=== PATIENT | female | born 1990 | race African-American/Black ===

== ENCOUNTER 2016-11-19 13:25 | Emergency (ER) | payer OTHER ==
[2016-11-19] MEDS ORDERED: SODIUM CHLORIDE 0.9% 1,000 ML IV STA (15:24)
[2016-11-19] MEDS ORDERED: ONDANSETRON 4 MG/2 ML VIAL IVP STA (15:24)
[2016-11-19] MEDS ORDERED: ACETAMINOPHEN IV (For NPO) 1,000 MG in SALINE 1 100ML.BAG IVPB STA (15:27)
--- NOTE | 2016-11-19 15:42 | ED ---
Nausea/Vomiting/Diarrhea HPI - General Chief complaint: Nausea/Vomiting/Diarrhea Stated complaint: Vomiting Time Seen by Provider: 11/19/16 15:17 Source: patient, RN notes reviewed Mode of arrival: ambulatory Limitations: no limitations - History of Present Illness Initial comments: This is a 26-year-old female who has a history of irritable bowel syndrome and hiatal hernia who states she had the onset yesterday of left lower quadrant abdominal pain some obstipation and black colored stool. She has no history of GI bleeding. She states the pain is intermittently a 10/10 severity sharp and burning in nature she denies any fevers chills or sweats she does have some nausea was having dry heaves. She does admit to drinking occasionally she is a approximately half a pack a day smoker. We did discuss smoking cessation. She does also complain feeling lightheaded upon try to ambulate. Additionally the patient does states she's been on her menstrual period for the past 2 days. She denies any dysuria or hematuria. MD complaint: nausea, vomiting, diarrhea, abdominal pain - Related Data Home Medications Medication Instructions Recorded Confirmed Omeprazole [PriLOSEC] 20 mg PO DAILY 01/05/16 11/19/16 Baclofen [Lioresal] 10 mg PO HS 09/16/16 11/19/16 DULoxetine HCL [Cymbalta] 30 mg PO DAILY 09/16/16 11/19/16 Gabapentin 600 mg PO QID 09/16/16 11/19/16 Dicyclomine [Bentyl] 20 mg PO DAILY PRN 11/19/16 11/19/16 Previous Rx's Medication Instructions Recorded Hydrocodone/Acetaminophen [[place] 1 each PO Q6HR PRN #20 tab 11/19/16 5-325] Allergies Allergy/AdvReac Type Severity Reaction Status Date / Time No Known Allergies Allergy Verified 11/19/16 15:31 Review of Systems ROS Statement: Those systems with pertinent positive or pertinent negative responses have been documented in the HPI. ROS Other: All systems not noted in ROS Statement are negative. Past Medical History Past Medical History: Fibromyalgia Additional Past Medical History / Comment(s): diverticulosis, abdominal pain, IBS History of Any Multi-Drug Resistant Organisms: None Reported Past Surgical History: No Surgical Hx Reported Additional Past Surgical History / Comment(s): COLONOSCOPY AND EGD Past Anesthesia/Blood Transfusion Reactions: No Reported Reaction Past Psychological History: Anxiety, Depression Smoking Status: Current every day smoker Past Alcohol Use History: Occasional Additional Past Alcohol Use History / Comment(s): smokes < 1/2 PPD for past 9 yrs Past Drug Use History: None Reported - Past Family History Mother Family Medical History: No Reported History General Exam - General Exam Comments Initial Comments: This is a well-developed well-nourished awake alert oriented 3 female Limitations: no limitations General appearance: alert, in no apparent distress Head exam: Present: atraumatic, normocephalic, normal inspection Eye exam: Present: normal appearance, PERRL, EOMI. Absent: scleral icterus, conjunctival injection, periorbital swelling ENT exam: Present: normal exam, mucous membranes moist Neck exam: Present: normal inspection. Absent: tenderness, meningismus, lymphadenopathy Respiratory exam: Present: normal lung sounds bilaterally. Absent: respiratory distress, wheezes, rales, rhonchi, stridor Cardiovascular Exam: Present: regular rate, normal rhythm, normal heart sounds. Absent: systolic murmur, diastolic murmur, rubs, gallop, clicks GI/Abdominal exam: Present: soft, tenderness (Left lower quadrant tenderness palpation no definite guarding or rebound), normal bowel sounds. Absent: distended, guarding, rebound, rigid Rectal exam: Present: normal inspection, normal rectal tone, other (No gross blood masses or hemorrhoids. The patient does have a tampon in at this time.) Extremities exam: Present: normal inspection, full ROM, normal capillary refill. Absent: tenderness, pedal edema, joint swelling, calf tenderness Back exam: Present: normal inspection Neurological exam: Present: alert, oriented X3, CN II-XII intact Psychiatric exam: Present: normal affect, normal mood Skin exam: Present: warm, dry, intact, normal color. Absent: rash Course Vital Signs 11/19/16 13:38 Temperature 98.1 F Pulse Rate 69 Respiratory 18 Rate Blood Pressure 128/60 O2 Sat by Pulse 97 Oximetry - Reevaluation(s) Reevaluation #1: 11/19/16 17:30 Patient states her nausea is better but she still has significant left lower quadrant pain. Pain medication will be administered in addition the CAT scan abdomen pelvis will be done. Medical Decision Making - Lab Data Result diagrams: 11/19/16 16:45 11/19/16 16:45 Lab Results 11/19/16 11/19/16 11/19/16 Range/Units 16:00 16:00 16:45 WBC (3.8-10.6) k/uL RBC (3.80-5.40) m/uL Hgb (11.4-16.0) gm/dL Hct (34.0-46.0) % MCV (80.0-100.0) fL MCH (25.0-35.0) pg MCHC (31.0-37.0) g/dL RDW (11.5-15.5) % Plt Count (150-450) k/uL Neutrophils % % Lymphocytes % % Monocytes % % Eosinophils % % Basophils % % Neutrophils # (1.3-7.7) k/uL Lymphocytes # (1.0-4.8) k/uL Monocytes # (0-1.0) k/uL Eosinophils # (0-0.7) k/uL Basophils # (0-0.2) k/uL Sodium 142 (137-145) mmol/L Potassium 4.6 (3.5-5.1) mmol/L Chloride 105 (98-107) mmol/L Carbon Dioxide 24 (22-30) mmol/L Anion Gap 13 mmol/L BUN 8 (7-17) mg/dL Creatinine 0.78 (0.52-1.04) mg/dL Est GFR (MDRD) Af Amer >60 (>60 ml/min/1.73 sqM) Est GFR (MDRD) Non-Af >60 (>60 ml/min/1.73 sqM) Glucose 86 (74-99) mg/dL Calcium 9.9 (8.4-10.2) mg/dL Total Bilirubin 0.5 (0.2-1.3) mg/dL AST 29 (14-36) U/L ALT 40 (9-52) U/L Alkaline Phosphatase 58 (38-126) U/L Total Protein 8.1 (6.3-8.2) g/dL Albumin 4.4 (3.5-5.0) g/dL Amylase 91 (30-110) U/L Lipase 243 (23-300) U/L Urine Color Yellow Urine Appearance Clear (Clear) Urine pH 6.0 (5.0-8.0) Ur Specific [place] 1.021 (1.001-1.035) Urine Protein Negative (Negative) Urine Glucose (UA) Negative (Negative) Urine Ketones Negative (Negative) Urine Blood Negative (Negative) Urine Nitrate Negative (Negative) Urine Bilirubin Negative (Negative) Urine Urobilinogen <2.0 (<2.0) mg/dL Ur Leukocyte Esterase Negative (Negative) Stool Occult Blood Negative (Negative) 11/19/16 Range/Units 16:45 WBC 7.3 (3.8-10.6) k/uL RBC 4.62 (3.80-5.40) m/uL Hgb 12.5 (11.4-16.0) gm/dL Hct 39.6 (34.0-46.0) % MCV 85.7 (80.0-100.0) fL MCH 27.1 (25.0-35.0) pg MCHC 31.6 (31.0-37.0) g/dL RDW 12.7 (11.5-15.5) % Plt Count 325 (150-450) k/uL Neutrophils % 35 % Lymphocytes % 54 % Monocytes % 3 % Eosinophils % 5 % Basophils % 1 % Neutrophils # 2.6 (1.3-7.7) k/uL Lymphocytes # 4.0 (1.0-4.8) k/uL Monocytes # 0.3 (0-1.0) k/uL Eosinophils # 0.3 (0-0.7) k/uL Basophils # 0.1 (0-0.2) k/uL Sodium (137-145) mmol/L Potassium (3.5-5.1) mmol/L Chloride (98-107) mmol/L Carbon Dioxide (22-30) mmol/L Anion Gap mmol/L BUN (7-17) mg/dL Creatinine (0.52-1.04) mg/dL Est GFR (MDRD) Af Amer (>60 ml/min/1.73 sqM) Est GFR (MDRD) Non-Af (>60 ml/min/1.73 sqM) Glucose (74-99) mg/dL Calcium (8.4-10.2) mg/dL Total Bilirubin (0.2-1.3) mg/dL AST (14-36) U/L ALT (9-52) U/L Alkaline Phosphatase (38-126) U/L Total Protein (6.3-8.2) g/dL Albumin (3.5-5.0) g/dL Amylase (30-110) U/L Lipase (23-300) U/L Urine Color Urine Appearance (Clear) Urine pH (5.0-8.0) Ur Specific [place] (1.001-1.035) Urine Protein (Negative) Urine Glucose (UA) (Negative) Urine Ketones (Negative) Urine Blood (Negative) Urine Nitrate (Negative) Urine Bilirubin (Negative) Urine Urobilinogen (<2.0) mg/dL Ur Leukocyte Esterase (Negative) Stool Occult Blood (Negative) - Radiology Data Radiology results: report reviewed (I did review the imaging and reports there is some evidence of some colitis no other major findings), image reviewed Disposition Clinical Impression: Gastroenteritis, Colitis Disposition: HOME SELF-CARE Condition: Good Instructions: Acute Nausea and Vomiting (ED), Colitis (ED) Prescriptions: Hydrocodone/Acetaminophen [[place] 5-325] 1 each PO Q6HR PRN #20 tab PRN Reason: Pain
[2016-11-19 16:29] LABS: Appearance,Urine Clear (Clear); Bilirubin,Urine Negative (Negative); Glucose,Urine (UA) Negative (Negative); Ketones,Urine Negative (Negative); Leukocyte Esterase,Urine Negative (Negative); Nitrite,Urine Negative (Negative); Protein,Urine Negative (Negative); Specific Gravity,Urine 1.021 (1.001-1.035); UA Billing (MACRO vs. MICRO) CHEM; Urobilinogen,Urine <2.0 mg/dL (<2.0)
[2016-11-19 17:08] LABS: Basophils # (A) 0.1 k/uL (0-0.2); Basophils % (A) 1 %; CH 27.8; CHCM 32.7; Eosinophils # (A) 0.3 k/uL (0-0.7); Eosinophils % (A) 5 %; HCT 39.6 % (34.0-46.0); HDW 2.35; HGB 12.5 gm/dL (11.4-16.0); Luc # (Auto) 0.13; Luc % (Auto) 2; Lymphocytes % (A) 54 %; MCH 27.1 pg (25.0-35.0); MCHC 31.6 g/dL (31.0-37.0); MCV 85.7 fL (80.0-100.0); Mean Platelet Volume 7.3; Monocytes # (A) 0.3 k/uL (0-1.0); Monocytes % (A) 3 %; Neutrophils # (A) 2.6 k/uL (1.3-7.7); Neutrophils % (A) 35 %; RBC 4.62 m/uL (3.80-5.40); RDW 12.7 % (11.5-15.5); WBC 7.3 k/uL (3.8-10.6); WBC (Perox) 7.64
--- NOTE | 2016-11-19 17:24 | XR ---
Abdomen HISTORY: Nausea vomiting and diarrhea Frontal view of the abdomen correlated to prior exam 05 January 2016 Lung bases are clear. There is a spinal curvature. No pneumoperitoneum. Some air-fluid levels present without bowel distention. IMPRESSION: Findings likely represent enteritis, follow-up as indicated
[2016-11-19 17:25] LABS: ALT 40 U/L (9-52); AST 29 U/L (14-36); Alkaline Phosphatase 58 U/L (38-126); Amylase 91 U/L (30-110); Anion Gap 13 mmol/L; Blood Urea Nitrogen 8 mg/dL (7-17); Calcium 9.9 mg/dL (8.4-10.2); Carbon Dioxide 24 mmol/L (22-30); Chloride 105 mmol/L (98-107); Glucose 86 mg/dL (74-99); Non-African American GFR(MDRD) >60 (>60 ml/min/1.73 sqM); Potassium 4.6 mmol/L (3.5-5.1); Sodium 142 mmol/L (137-145); Total Bilirubin 0.5 mg/dL (0.2-1.3); Total Protein 8.1 g/dL (6.3-8.2)
--- NOTE | 2016-11-19 17:25 | XR ---
EXAMINATION TYPE: XR chest 2V DATE OF EXAM: 11/19/2016 5:12 PM COMPARISON: NONE HISTORY: Pain TECHNIQUE: Frontal and lateral views of the chest are obtained. FINDINGS: There is no focal air space opacity, pleural effusion, or pneumothorax seen. The cardiac silhouette size is within normal limits. The osseous structures are intact. IMPRESSION: No acute cardiopulmonary process.
[2016-11-19] MEDS ORDERED: KETOROLAC 30 MG/ML 1 ML VIAL IVP STA (17:29)
--- NOTE | 2016-11-19 18:20 | CT ---
EXAMINATION TYPE: CT abdomen pelvis wo con DATE OF EXAM: 11/19/2016 5:52 PM COMPARISON: Prior CT scan 05 January 2016 HISTORY: Bilateral flank pain with nausea. CT DLP: 490.90 mGycm Automated exposure control for dose reduction was used. TECHNIQUE: Helical acquisition of images from the lung bases through the pelvis. FINDINGS: Lack of intravenous contrast could compromise sensitivity. LUNG BASES: No significant abnormality is appreciated. AORTA: No significant abnormality is appreciated. LIVER/GB: No significant abnormality is appreciated. PANCREAS: No significant abnormality is seen. SPLEEN: No significant abnormality is seen. ADRENALS: No significant abnormality is seen. KIDNEYS: No significant abnormality is seen. REPRODUCTIVE ORGANS: Tampon is in place URINARY BLADDER: No significant abnormality is seen. BOWEL: There are fluid-filled loops of bowel, colon shows questionable wall thickening, there is no evident appendicitis FREE AIR: No Free Air is visible. ASCITES: None visible. PELVIC ADENOPATHY: None visualized. RETROPERITONEAL ADENOPATHY: No Retroperitoneal Adenopathy visible. OSSEOUS STRUCTURES: No significant abnormality is seen. IMPRESSION: NONCONTRAST EXAM MAY LIMIT SENSITIVITY. CORRELATE FOR POSSIBLE ENTERITIS, COLITIS. ADDITIONAL FINDING S ABOVE.
[2016-11-19 18:56] VITALS: BP 130/61; PULSE 68; RESP 16; TEMP 97.9
== END 2016-11-19 18:56 | disposition home or self-care (01) ==
LOC: EC 13:25
DX: K52.9 Noninfective gastroenteritis and colitis, unspecified (principal); K58.9 Irritable bowel syndrome, unspecified; F17.200 Nicotine dependence, unspecified, uncomplicated; F41.9 Anxiety disorder, unspecified; F32.9 Major depressive disorder, single episode, unspecified
CPT/HCPCS: 99284; 96375; 96365; 96361; 36415; 80053; 82150; 83690; 85025; 82272; 81003; 71020; 74000; 74176; J2405; J1885; J0131

== ENCOUNTER 2016-12-07 13:06 | Emergency (ER) | payer OTHER ==
[2016-12-07] MEDS ORDERED: DICYCLOMINE 10 MG/ML 2 ML AMP IM STA (13:45)
[2016-12-07] MEDS ORDERED: diphenhydrAMINE 50 MG/ML 1 ML VIAL IVP STA (13:45)
[2016-12-07] MEDS ORDERED: METOCLOPRAMIDE 5 MG/ML 2 ML VIAL IVP STA (13:45)
[2016-12-07] MEDS ORDERED: FAMOTIDINE 20 MG/2 ML VIAL IV STA (13:45)
[2016-12-07] MEDS ORDERED: SODIUM CHLORIDE 0.9% 1,000 ML IV STA (13:45)
--- NOTE | 2016-12-07 13:48 | ED ---
Nausea/Vomiting/Diarrhea HPI - General Chief complaint: Nausea/Vomiting/Diarrhea Stated complaint: vomiting Time Seen by Provider: 12/07/16 13:28 Source: patient Mode of arrival: ambulatory Limitations: no limitations - History of Present Illness Initial comments: Patient is a 26-year-old female with history of IBS presenting with abdominal cramping, nausea, vomiting, diarrhea. Patient states she went out last night and with friends and ate some cake which is a trigger for her. Patient woke up bloated and having episodes of loose stool. She states was on the toilet for 2 hours having intermittent episodes of loose stool. Patient cannot quantify the number of episodes of diarrhea. Patient states she has 2 episodes of vomiting green. Patient denies any recent antibiotics, travel, sick contacts. She does admit to the suspicious food for which she is not supposed to eat dairy. Denies fever, chills, chest pain, shortness breath. - Related Data Home Medications Medication Instructions Recorded Confirmed Omeprazole [PriLOSEC] 20 mg PO DAILY 01/05/16 11/19/16 Baclofen [Lioresal] 10 mg PO HS 09/16/16 11/19/16 DULoxetine HCL [Cymbalta] 30 mg PO DAILY 09/16/16 11/19/16 Gabapentin 600 mg PO QID 09/16/16 11/19/16 Dicyclomine [Bentyl] 20 mg PO DAILY PRN 11/19/16 11/19/16 Previous Rx's Medication Instructions Recorded Hydrocodone/Acetaminophen [[place] 1 each PO Q6HR PRN #20 tab 11/19/16 5-325] Dicyclomine [Bentyl] 20 mg PO QID #30 tablet 12/07/16 Allergies Allergy/AdvReac Type Severity Reaction Status Date / Time No Known Allergies Allergy Verified 12/07/16 13:23 Review of Systems ROS Statement: Those systems with pertinent positive or pertinent negative responses have been documented in the HPI. Constitutional: No fever and no chills. HENT: No congestion, no rhinorrhea and no sore throat. Eyes: No discharge and no redness. Respiratory: No cough and no shortness of breath. Cardiovascular: No chest pain and no palpitations. Gastrointestinal: Positive for abdominal cramping, nausea, vomiting, diarrhea Genitourinary: No dysuria and no hematuria. Musculoskeletal: No back pain and no arthralgias. Skin: No pallor and no rash. Neurological: No dizziness and No headaches. ROS Other: All systems not noted in ROS Statement are negative. Past Medical History Past Medical History: Fibromyalgia Additional Past Medical History / Comment(s): diverticulosis, abdominal pain, IBS History of Any Multi-Drug Resistant Organisms: None Reported Past Surgical History: No Surgical Hx Reported Additional Past Surgical History / Comment(s): COLONOSCOPY AND EGD Past Anesthesia/Blood Transfusion Reactions: No Reported Reaction Past Psychological History: Anxiety, Depression Smoking Status: Current every day smoker Past Alcohol Use History: Occasional Additional Past Alcohol Use History / Comment(s): smokes < 1/2 PPD for past 9 yrs Past Drug Use History: None Reported - Past Family History Mother Family Medical History: No Reported History General Exam - General Exam Comments Initial Comments: Constitutional: Patient appears well-developed and well-nourished. Mild distress. Tearful. Head: Normocephalic and atraumatic. Eyes: Conjunctivae and EOM are normal. Right eye exhibits no discharge. Left eye exhibits no discharge. No scleral icterus. Neck: Normal range of motion. Neck supple. Cardiovascular: Normal rate and regular rhythm. No murmur heard. Pulmonary/Chest: Effort normal and breath sounds normal. No respiratory distress. No wheezes. Abdominal: Soft. No distension. There is no tenderness. There is no rebound and no guarding. Musculoskeletal: Normal range of motion. No edema or tenderness. Neurological: Patient alert and oriented to person, place, and time. Skin: Skin is warm and dry. Not diaphoretic. Nursing notes and vitals reviewed. Limitations: no limitations Course Vital Signs 12/07/16 12/07/16 13:19 15:15 Temperature 99.5 F 100.7 F H Pulse Rate 102 H 91 Respiratory 20 18 Rate Blood Pressure 123/55 124/61 O2 Sat by Pulse 98 100 Oximetry - Reevaluation(s) Reevaluation #1: 12/07/16 16:50 Patient feeling better and updated on lab results as well as x-ray. X-rays unremarkable. Patient with a temperature upon discharge vitals. She is without source of infection at this time abdomen is soft nontender. No right lower quadrant tenderness. Medical Decision Making - Medical Decision Making Patient is a 26-year-old female presenting with abdominal cramping, nausea, vomiting, diarrhea. Patient has IBS and ate dairy last night. Patient woke up having symptoms. She does not have any Bentyl which normally works for her symptoms. Patient was given Bentyl, Pepcid, Reglan, IV fluids, Benadryl with improvement of symptoms. Laboratory studies CBC, CMP, lipase, magnesium unremarkable. UA negative. negative. Abdominal x-ray without free air or air-fluid levels. Prior to discharge, patient was resting comfortably in bed. Course of stay improved. Fever developed while here. Patient is able to be discharged after Motrin. Denies pain. Discussed physical exam and diagnostic tests with patient. Questions answered and patient is agreeable to discharge with close follow up with Primary Care Physician. Instructed to return to Emergency Department if symptoms worsen. - Lab Data Result diagrams: 12/07/16 13:45 12/07/16 13:45 Lab Results 12/07/16 12/07/16 12/07/16 Range/Units 13:45 13:45 13:45 WBC 9.8 (3.8-10.6) k/uL RBC 4.37 (3.80-5.40) m/uL Hgb 11.9 (11.4-16.0) gm/dL Hct 37.1 (34.0-46.0) % MCV 84.8 (80.0-100.0) fL MCH 27.2 (25.0-35.0) pg MCHC 32.0 (31.0-37.0) g/dL RDW 13.1 (11.5-15.5) % Plt Count 265 (150-450) k/uL Neutrophils % 83 % Lymphocytes % 9 % Monocytes % 3 % Eosinophils % 3 % Basophils % 0 % Neutrophils # 8.1 H (1.3-7.7) k/uL Lymphocytes # 0.9 L (1.0-4.8) k/uL Monocytes # 0.3 (0-1.0) k/uL Eosinophils # 0.3 (0-0.7) k/uL Basophils # 0.0 (0-0.2) k/uL Sodium 140 (137-145) mmol/L Potassium 4.2 (3.5-5.1) mmol/L Chloride 107 (98-107) mmol/L Carbon Dioxide 22 (22-30) mmol/L Anion Gap 11 mmol/L BUN 10 (7-17) mg/dL Creatinine 0.77 (0.52-1.04) mg/dL Est GFR (MDRD) Af Amer >60 (>60 ml/min/1.73 sqM) Est GFR (MDRD) Non-Af >60 (>60 ml/min/1.73 sqM) Glucose 97 (74-99) mg/dL Calcium 9.3 (8.4-10.2) mg/dL Magnesium 1.6 (1.6-2.3) mg/dL Total Bilirubin 0.7 (0.2-1.3) mg/dL AST 19 (14-36) U/L ALT 26 (9-52) U/L Alkaline Phosphatase 52 (38-126) U/L Total Protein 7.5 (6.3-8.2) g/dL Albumin 4.1 (3.5-5.0) g/dL Lipase 144 (23-300) U/L Urine Color Urine Appearance (Clear) Urine pH (5.0-8.0) Ur Specific [place] (1.001-1.035) Urine Protein (Negative) Urine Glucose (UA) (Negative) Urine Ketones (Negative) Urine Blood (Negative) Urine Nitrate (Negative) Urine Bilirubin (Negative) Urine Urobilinogen (<2.0) mg/dL Ur Leukocyte Esterase (Negative) Urine HCG, Qual (Not Detectd) 12/07/16 12/07/16 Range/Units 15:08 15:08 WBC (3.8-10.6) k/uL RBC (3.80-5.40) m/uL Hgb (11.4-16.0) gm/dL Hct (34.0-46.0) % MCV (80.0-100.0) fL MCH (25.0-35.0) pg MCHC (31.0-37.0) g/dL RDW (11.5-15.5) % Plt Count (150-450) k/uL Neutrophils % % Lymphocytes % % Monocytes % % Eosinophils % % Basophils % % Neutrophils # (1.3-7.7) k/uL Lymphocytes # (1.0-4.8) k/uL Monocytes # (0-1.0) k/uL Eosinophils # (0-0.7) k/uL Basophils # (0-0.2) k/uL Sodium (137-145) mmol/L Potassium (3.5-5.1) mmol/L Chloride (98-107) mmol/L Carbon Dioxide (22-30) mmol/L Anion Gap mmol/L BUN (7-17) mg/dL Creatinine (0.52-1.04) mg/dL Est GFR (MDRD) Af Amer (>60 ml/min/1.73 sqM) Est GFR (MDRD) Non-Af (>60 ml/min/1.73 sqM) Glucose (74-99) mg/dL Calcium (8.4-10.2) mg/dL Magnesium (1.6-2.3) mg/dL Total Bilirubin (0.2-1.3) mg/dL AST (14-36) U/L ALT (9-52) U/L Alkaline Phosphatase (38-126) U/L Total Protein (6.3-8.2) g/dL Albumin (3.5-5.0) g/dL Lipase (23-300) U/L Urine Color Yellow Urine Appearance Clear (Clear) Urine pH 6.0 (5.0-8.0) Ur Specific [place] 1.021 (1.001-1.035) Urine Protein Negative (Negative) Urine Glucose (UA) Negative (Negative) Urine Ketones Negative (Negative) Urine Blood Negative (Negative) Urine Nitrate Negative (Negative) Urine Bilirubin Negative (Negative) Urine Urobilinogen <2.0 (<2.0) mg/dL Ur Leukocyte Esterase Negative (Negative) Urine HCG, Qual Not Detected (Not Detectd) Disposition Clinical Impression: Vomiting and diarrhea, History of IBS, Fever Disposition: HOME SELF-CARE Condition: Good Instructions: Irritable Bowel Syndrome (ED), Acute Nausea and Vomiting (ED), Acute Diarrhea (ED), Fever in Adults (ED) Prescriptions: Dicyclomine [Bentyl] 20 mg PO QID #30 tablet Referrals: Elena Anthony MD [Primary Care Provider] - 1-2 days
[2016-12-07 14:03] LABS: Basophils % (A) 0 %; CH 28.3; CHCM 33.6; Eosinophils # (A) 0.3 k/uL (0-0.7); Eosinophils % (A) 3 %; HCT 37.1 % (34.0-46.0); HDW 2.36; HGB 11.9 gm/dL (11.4-16.0); Luc # (Auto) 0.06; Luc % (Auto) 1; Lymphocytes # (A) 0.9 k/uL (1.0-4.8); Lymphocytes % (A) 9 %; MCH 27.2 pg (25.0-35.0); MCV 84.8 fL (80.0-100.0); Monocytes # (A) 0.3 k/uL (0-1.0); Monocytes % (A) 3 %; Neutrophils # (A) 8.1 k/uL (1.3-7.7); Neutrophils % (A) 83 %; RBC 4.37 m/uL (3.80-5.40); RDW 13.1 % (11.5-15.5); WBC 9.8 k/uL (3.8-10.6)
[2016-12-07 14:12] LABS: ALT 26 U/L (9-52); AST 19 U/L (14-36); Alkaline Phosphatase 52 U/L (38-126); Anion Gap 11 mmol/L; Blood Urea Nitrogen 10 mg/dL (7-17); Calcium 9.3 mg/dL (8.4-10.2); Carbon Dioxide 22 mmol/L (22-30); Chloride 107 mmol/L (98-107); Glucose 97 mg/dL (74-99); Non-African American GFR(MDRD) >60 (>60 ml/min/1.73 sqM); Potassium 4.2 mmol/L (3.5-5.1); Sodium 140 mmol/L (137-145); Total Bilirubin 0.7 mg/dL (0.2-1.3); Total Protein 7.5 g/dL (6.3-8.2)
[2016-12-07 15:22] LABS: Appearance,Urine Clear (Clear); Bilirubin,Urine Negative (Negative); Glucose,Urine (UA) Negative (Negative); Ketones,Urine Negative (Negative); Leukocyte Esterase,Urine Negative (Negative); Nitrite,Urine Negative (Negative); Protein,Urine Negative (Negative); Specific Gravity,Urine 1.021 (1.001-1.035); UA Billing (MACRO vs. MICRO) CHEM; Urobilinogen,Urine <2.0 mg/dL (<2.0)
--- NOTE | 2016-12-07 16:38 | XR ---
EXAMINATION TYPE: XR abdomen complete w decub DATE OF EXAM: 12/07/2016 4:14 PM COMPARISON: Prior abdomen and CT abdomen pelvis 19 November 2016 HISTORY: Pain, vomiting and nausea, diarrhea TECHNIQUE: Supine, upright, and left side down lateral decubitus views of the abdomen are obtained. 3 views of the abdomen on 4 images FINDINGS: There is no evidence for pneumoperitoneum. The bowel gas pattern is unremarkable as there is air throughout nondilated small and large bowel. Some air-fluid levels are present without significant bowel distention as on prior exam. No mass effects are seen. No unusual calcifications. IMPRESSION: Correlate for possible enteritis.
[2016-12-07] MEDS ORDERED: IBUPROFEN 600 MG TAB PO STA (16:50)
[2016-12-07 16:56] VITALS: BP 134/67; PULSE 95; RESP 16; TEMP 101.5
== END 2016-12-07 16:55 | disposition home or self-care (01) ==
LOC: EC 13:06
DX: R11.2 Nausea with vomiting, unspecified (principal); R19.7 Diarrhea, unspecified; R50.9 Fever, unspecified; R10.9 Unspecified abdominal pain; K58.9 Irritable bowel syndrome, unspecified; M79.7 Fibromyalgia; F32.9 Major depressive disorder, single episode, unspecified; F41.9 Anxiety disorder, unspecified; F17.200 Nicotine dependence, unspecified, uncomplicated; Z79.899 Other long term (current) drug therapy
CPT/HCPCS: 36415; 80053; 83690; 83735; 85025; 81003; 81025; 74020; 99284; 96374; 96375 ×2; 96372; 96361 ×3; J1200; J0500; J2765

== ENCOUNTER 2017-03-07 10:28 | Emergency (ER) | payer OTHER ==
[2017-03-07 10:46] VITALS: RESP 20
[2017-03-07] MEDS ORDERED: SODIUM CHLORIDE 0.9% 1,000 ML IV STA (11:54)
[2017-03-07] MEDS ORDERED: ONDANSETRON 4 MG/2 ML VIAL IVP STA (11:54)
--- NOTE | 2017-03-07 12:28 | ED ---
Abdominal Pain HPI - General Chief Complaint: Abdominal Pain Stated Complaint: Abd pain,vomiting Time Seen by Provider: 03/07/17 11:54 Source: patient, RN notes reviewed Mode of arrival: ambulatory Limitations: no limitations - History of Present Illness Initial Comments: 26 year old female presents emergency Department with chief complaint of nausea vomiting diarrhea. Patient states that she woke up not feeling well today. Patient states saw some nausea. Patient denies any sick contacts though she states it large amount traveling yesterday. Patient denies fever, chills, back pain, chest pain, shortness of breath, hematemesis, coffee-ground emesis, melena or hematochezia. She states that her menstrual cycle is approximately 3 weeks ago. She does not believe that she is . Denies any dysuria hematuria. - Related Data Home Medications Medication Instructions Recorded Confirmed DULoxetine HCL [Cymbalta] 30 mg PO DAILY 09/16/16 03/07/17 Baclofen [Lioresal] 20 mg PO BID 03/07/17 03/07/17 Gabapentin [Neurontin] 400 mg PO QID 03/07/17 03/07/17 Naproxen [Naproxen] 500 mg PO BID 03/07/17 03/07/17 Omeprazole [PriLOSEC] 20 mg PO DAILY 03/07/17 03/07/17 Ranitidine HCl [Zantac] 150 mg PO HS 03/07/17 03/07/17 Previous Rx's Medication Instructions Recorded Ondansetron Odt [Zofran Odt] 4 mg PO Q8HR PRN #10 tab 03/07/17 Allergies Allergy/AdvReac Type Severity Reaction Status Date / Time No Known Allergies Allergy Verified 03/07/17 12:06 Review of Systems ROS Statement: Those systems with pertinent positive or pertinent negative responses have been documented in the HPI. ROS Other: All systems not noted in ROS Statement are negative. Past Medical History Past Medical History: Fibromyalgia Additional Past Medical History / Comment(s): diverticulosis, abdominal pain, IBS History of Any Multi-Drug Resistant Organisms: None Reported Past Surgical History: No Surgical Hx Reported Additional Past Surgical History / Comment(s): COLONOSCOPY AND EGD Past Anesthesia/Blood Transfusion Reactions: No Reported Reaction Past Psychological History: Anxiety, Depression Smoking Status: Current every day smoker Past Alcohol Use History: Occasional Additional Past Alcohol Use History / Comment(s): smokes < 1/2 PPD for past 9 yrs Past Drug Use History: None Reported - Past Family History Mother Family Medical History: No Reported History General Exam Limitations: no limitations General appearance: alert, in no apparent distress Head exam: Present: atraumatic, normocephalic, normal inspection Neck exam: Present: normal inspection, full ROM. Absent: tenderness, meningismus, lymphadenopathy Respiratory exam: Present: normal lung sounds bilaterally. Absent: respiratory distress, wheezes, rales, rhonchi, stridor Cardiovascular Exam: Present: regular rate, normal rhythm, normal heart sounds. Absent: systolic murmur, diastolic murmur, rubs, gallop, clicks GI/Abdominal exam: Present: soft, tenderness (Mild diffuse), normal bowel sounds. Absent: distended, guarding, rebound, rigid Back exam: Absent: CVA tenderness (R), CVA tenderness (L) Neurological exam: Present: alert, oriented X3, CN II-XII intact Skin exam: Present: warm, dry, intact, normal color. Absent: rash Course Vital Signs 03/07/17 03/07/17 10:45 13:31 Temperature 97.8 F Pulse Rate 71 45 L Respiratory 20 20 Rate Blood Pressure 125/58 123/79 O2 Sat by Pulse 96 100 Oximetry Medical Decision Making - Medical Decision Making 26-year-old female presented for nausea vomiting denies upset stomach. Patient appears or gastroenteritis. Patient's labwork within normal limits. Patient does feel improved after IV fluids, antiemetics. Return parameters were discussed. Patient be discharged with Zofran. - Lab Data Result diagrams: 03/07/17 12:40 03/07/17 12:40 Lab Results 03/07/17 03/07/17 03/07/17 Range/Units 12:40 12:40 12:40 WBC 7.5 (3.8-10.6) k/uL RBC 4.64 (3.80-5.40) m/uL Hgb 12.7 (11.4-16.0) gm/dL Hct 38.0 (34.0-46.0) % MCV 81.9 (80.0-100.0) fL MCH 27.5 (25.0-35.0) pg MCHC 33.6 (31.0-37.0) g/dL RDW 13.1 (11.5-15.5) % Plt Count 245 (150-450) k/uL Neutrophils % 37 % Lymphocytes % 52 % Monocytes % 5 % Eosinophils % 3 % Basophils % 1 % Neutrophils # 2.8 (1.3-7.7) k/uL Lymphocytes # 3.9 (1.0-4.8) k/uL Monocytes # 0.4 (0-1.0) k/uL Eosinophils # 0.2 (0-0.7) k/uL Basophils # 0.1 (0-0.2) k/uL Differential Comment P Polychromasia Present Sodium 139 (137-145) mmol/L Potassium 4.2 (3.5-5.1) mmol/L Chloride 106 (98-107) mmol/L Carbon Dioxide 23 (22-30) mmol/L Anion Gap 10 mmol/L BUN 11 (7-17) mg/dL Creatinine 0.75 (0.52-1.04) mg/dL Est GFR (MDRD) Af Amer >60 (>60 ml/min/1.73 sqM) Est GFR (MDRD) Non-Af >60 (>60 ml/min/1.73 sqM) Glucose 88 (74-99) mg/dL Calcium 9.5 (8.4-10.2) mg/dL Total Bilirubin 0.6 (0.2-1.3) mg/dL AST 24 (14-36) U/L ALT 36 (9-52) U/L Alkaline Phosphatase 54 (38-126) U/L Total Protein 7.8 (6.3-8.2) g/dL Albumin 4.3 (3.5-5.0) g/dL Amylase 94 (30-110) U/L Lipase 276 (23-300) U/L Urine Color Urine Appearance (Clear) Urine pH (5.0-8.0) Ur Specific [place] (1.001-1.035) Urine Protein (Negative) Urine Glucose (UA) (Negative) Urine Ketones (Negative) Urine Blood (Negative) Urine Nitrite (Negative) Urine Bilirubin (Negative) Urine Urobilinogen (<2.0) mg/dL Ur Leukocyte Esterase (Negative) Urine RBC (0-5) /hpf Urine WBC (0-5) /hpf Ur Squamous Epith Cells (0-4) /hpf Urine Bacteria (None) /hpf Urine Mucus (None) /hpf Urine HCG, Qual Not Detected (Not Detectd) 03/07/17 Range/Units 12:40 WBC (3.8-10.6) k/uL RBC (3.80-5.40) m/uL Hgb (11.4-16.0) gm/dL Hct (34.0-46.0) % MCV (80.0-100.0) fL MCH (25.0-35.0) pg MCHC (31.0-37.0) g/dL RDW (11.5-15.5) % Plt Count (150-450) k/uL Neutrophils % % Lymphocytes % % Monocytes % % Eosinophils % % Basophils % % Neutrophils # (1.3-7.7) k/uL Lymphocytes # (1.0-4.8) k/uL Monocytes # (0-1.0) k/uL Eosinophils # (0-0.7) k/uL Basophils # (0-0.2) k/uL Differential Comment Polychromasia Sodium (137-145) mmol/L Potassium (3.5-5.1) mmol/L Chloride (98-107) mmol/L Carbon Dioxide (22-30) mmol/L Anion Gap mmol/L BUN (7-17) mg/dL Creatinine (0.52-1.04) mg/dL Est GFR (MDRD) Af Amer (>60 ml/min/1.73 sqM) Est GFR (MDRD) Non-Af (>60 ml/min/1.73 sqM) Glucose (74-99) mg/dL Calcium (8.4-10.2) mg/dL Total Bilirubin (0.2-1.3) mg/dL AST (14-36) U/L ALT (9-52) U/L Alkaline Phosphatase (38-126) U/L Total Protein (6.3-8.2) g/dL Albumin (3.5-5.0) g/dL Amylase (30-110) U/L Lipase (23-300) U/L Urine Color Light Yellow Urine Appearance Cloudy H (Clear) Urine pH 5.5 (5.0-8.0) Ur Specific [place] 1.009 (1.001-1.035) Urine Protein Negative (Negative) Urine Glucose (UA) Negative (Negative) Urine Ketones Negative (Negative) Urine Blood Negative (Negative) Urine Nitrite Negative (Negative) Urine Bilirubin Negative (Negative) Urine Urobilinogen <2.0 (<2.0) mg/dL Ur Leukocyte Esterase Negative (Negative) Urine RBC 3 (0-5) /hpf Urine WBC 1 (0-5) /hpf Ur Squamous Epith Cells 8 H (0-4) /hpf Urine Bacteria Rare H (None) /hpf Urine Mucus Occasional H (None) /hpf Urine HCG, Qual (Not Detectd) Disposition Clinical Impression: Gastroenteritis Disposition: HOME SELF-CARE Condition: Stable Instructions: Gastroenteritis (ED) Additional Instructions: Please return to the Emergency Department if symptoms worsen or any other concerns. Prescriptions: Ondansetron Odt [Zofran Odt] 4 mg PO Q8HR PRN #10 tab PRN Reason: Nausea Referrals: Elena Anthony MD [Primary Care Provider] - 1-2 days
[2017-03-07 13:02] LABS: Appearance,Urine Cloudy (Clear); Bacteria,Urine Rare /hpf; Bilirubin,Urine Negative (Negative); Glucose,Urine (UA) Negative (Negative); Ketones,Urine Negative (Negative); Leukocyte Esterase,Urine Negative (Negative); Mucus,Urine Occasional /hpf; Nitrite,Urine Negative (Negative); PH, Urine 5.5 (5.0-8.0); Particle Count 7268; Protein,Urine Negative (Negative); RBC,Urine 3 /hpf (0-5); Specific Gravity,Urine 1.009 (1.001-1.035); Squamous Epithelial Cell,Urine 8 /hpf (0-4); UA Billing (MACRO vs. MICRO) MICRO; Urobilinogen,Urine <2.0 mg/dL (<2.0); WBC,Urine 1 /hpf (0-5)
[2017-03-07 13:12] LABS: Basophils # (A) 0.1 k/uL (0-0.2); Basophils % (A) 1 %; CH 27.6; CHCM 33.8; Eosinophils # (A) 0.2 k/uL (0-0.7); Eosinophils % (A) 3 %; HDW 2.25; HGB 12.7 gm/dL (11.4-16.0); Luc % (Auto) 3; Lymphocytes # (A) 3.9 k/uL (1.0-4.8); Lymphocytes % (A) 52 %; MCH 27.5 pg (25.0-35.0); MCHC 33.6 g/dL (31.0-37.0); MCV 81.9 fL (80.0-100.0); Mean Platelet Volume 6.7; Monocytes # (A) 0.4 k/uL (0-1.0); Monocytes % (A) 5 %; Neutrophils # (A) 2.8 k/uL (1.3-7.7); Neutrophils % (A) 37 %; RBC 4.64 m/uL (3.80-5.40); RDW 13.1 % (11.5-15.5); WBC 7.5 k/uL (3.8-10.6); WBC (Perox) 6.96
[2017-03-07 13:21] LABS: ALT 36 U/L (9-52); AST 24 U/L (14-36); Alkaline Phosphatase 54 U/L (38-126); Amylase 94 U/L (30-110); Anion Gap 10 mmol/L; Blood Urea Nitrogen 11 mg/dL (7-17); Calcium 9.5 mg/dL (8.4-10.2); Carbon Dioxide 23 mmol/L (22-30); Chloride 106 mmol/L (98-107); Glucose 88 mg/dL (74-99); Non-African American GFR(MDRD) >60 (>60 ml/min/1.73 sqM); Potassium 4.2 mmol/L (3.5-5.1); Sodium 139 mmol/L (137-145); Total Bilirubin 0.6 mg/dL (0.2-1.3); Total Protein 7.8 g/dL (6.3-8.2)
[2017-03-07] MEDS ORDERED: KETOROLAC 30 MG/ML 1 ML VIAL IVP STA (13:27)
[2017-03-07 13:48] LABS: Polychromasia Present
--- NOTE | 2017-03-07 14:06 | XR ---
EXAMINATION TYPE: XR KUB DATE OF EXAM: 03/07/2017 1:48 PM CLINICAL DATA: 26-year-old female with abdominal pain, [facility] COMPARISON: 11/19/2016 FINDINGS: Lung bases are clear. No evidence for free intraperitoneal air. No dilated small bowel or air-fluid levels. Scattered air and stool seen throughout the colon extendi ng distally into the rectum. No significant stool burden. No suspicious calcifications identified. IMPRESSION: No evidence of bowel obstruction or free intraperitoneal air.
[2017-03-07 14:07] VITALS: BP 115/56; PULSE 65; TEMP 98.2
== END 2017-03-07 14:05 | disposition home or self-care (01) ==
LOC: EC 10:28
DX: K52.9 Noninfective gastroenteritis and colitis, unspecified (principal); M79.7 Fibromyalgia; F41.9 Anxiety disorder, unspecified; F32.9 Major depressive disorder, single episode, unspecified; F17.200 Nicotine dependence, unspecified, uncomplicated; Z79.1 Long term (current) use of non-steroidal anti-inflammatories (NSAID); Z79.899 Other long term (current) drug therapy
CPT/HCPCS: 99284 ×2; 96374 ×2; 96375 ×2; 96361 ×2; 36415; 80053; 82150; 83690; 85025; 81001; 81025; 74000; J2405; J1885

== ENCOUNTER 2017-03-20 15:33 | Emergency (ER) | payer OTHER ==
[2017-03-20] MEDS ORDERED: SODIUM CHLORIDE 0.9% 1,000 ML IV STA ×2 (16:26)
[2017-03-20] MEDS ORDERED: KETOROLAC 30 MG/ML 1 ML VIAL IVP STA (16:26)
[2017-03-20] MEDS ORDERED: ONDANSETRON 4 MG/2 ML VIAL IVP STA (16:26)
--- NOTE | 2017-03-20 16:29 | ED ---
Abdominal Pain HPI - General Chief Complaint: Abdominal Pain Stated Complaint: Nausea/Vomiting Time Seen by Provider: 03/20/17 16:12 Source: patient, RN notes reviewed, old records reviewed Mode of arrival: ambulatory Limitations: no limitations - History of Present Illness Initial Comments: This is 26 year old female presenting to emergency Department chief complaint of 1 day of left upper quadrant and left lower quadrant abdominal pain, a foul taste in her mouth, and a few episodes of vomiting. Patient reports that every time she ate today she feels that she has to vomit it back up. She reports she' s had some small bites of the nail but is not able tolerate any food. She reports that she's had normal bowel movements today. She reports that she was recently diagnosed with gastritis and was feeling somewhat better 2-3 days after she was discharged from the hospital. Patient reports that that was last week feeling well for the past few days but today she started to have the same sensations again. P. Patient reports that she can "smell blood in her urine". She denies any back pain. Patient states that no chance of . - Related Data Home Medications Medication Instructions Recorded Confirmed DULoxetine HCL [Cymbalta] 30 mg PO DAILY 09/16/16 03/20/17 Baclofen [Lioresal] 20 mg PO BID 03/07/17 03/20/17 Gabapentin [Neurontin] 400 mg PO QID 03/07/17 03/20/17 Naproxen [Naproxen] 500 mg PO BID 03/07/17 03/20/17 Omeprazole [PriLOSEC] 20 mg PO DAILY 03/07/17 03/20/17 Ranitidine HCl [Zantac] 150 mg PO HS 03/07/17 03/20/17 Previous Rx's Medication Instructions Recorded Famotidine [Pepcid] 20 mg PO BID #20 tablet 03/20/17 Ondansetron Odt [Zofran Odt] 4 mg PO Q8HR PRN #12 tab 03/20/17 Allergies Allergy/AdvReac Type Severity Reaction Status Date / Time No Known Allergies Allergy Verified 03/20/17 16:23 Review of Systems ROS Statement: Those systems with pertinent positive or pertinent negative responses have been documented in the HPI. ROS Other: All systems not noted in ROS Statement are negative. Past Medical History Past Medical History: Fibromyalgia Additional Past Medical History / Comment(s): diverticulosis, abdominal pain, IBS History of Any Multi-Drug Resistant Organisms: None Reported Past Surgical History: No Surgical Hx Reported Additional Past Surgical History / Comment(s): COLONOSCOPY AND EGD Past Anesthesia/Blood Transfusion Reactions: No Reported Reaction Past Psychological History: Anxiety, Depression Smoking Status: Current every day smoker Past Alcohol Use History: Occasional Additional Past Alcohol Use History / Comment(s): smokes < 1/2 PPD for past 9 yrs Past Drug Use History: None Reported - Past Family History Mother Family Medical History: No Reported History General Exam - General Exam Comments Initial Comments: Well-appearing 26-year-old female. No acute distress. Limitations: no limitations General appearance: alert, in no apparent distress Head exam: Present: atraumatic, normocephalic, normal inspection Eye exam: Present: normal appearance, PERRL, EOMI. Absent: scleral icterus, conjunctival injection, periorbital swelling ENT exam: Present: normal exam, mucous membranes moist Neck exam: Present: normal inspection. Absent: tenderness, meningismus, lymphadenopathy Respiratory exam: Present: normal lung sounds bilaterally. Absent: respiratory distress, wheezes, rales, rhonchi, stridor Cardiovascular Exam: Present: regular rate, normal rhythm, normal heart sounds. Absent: systolic murmur, diastolic murmur, rubs, gallop, clicks GI/Abdominal exam: Present: soft, tenderness (Left upper quadrant and left lower quadrant tenderness.), normal bowel sounds. Absent: distended, guarding, rebound, rigid Extremities exam: Present: normal inspection, full ROM, normal capillary refill. Absent: tenderness, pedal edema, joint swelling, calf tenderness Back exam: Present: normal inspection Neurological exam: Present: alert, oriented X3, CN II-XII intact Psychiatric exam: Present: normal affect, normal mood Skin exam: Present: warm, dry, intact, normal color. Absent: rash Course Vital Signs 03/20/17 15:43 Temperature 98.1 F Pulse Rate 75 Respiratory 18 Rate Blood Pressure 128/72 O2 Sat by Pulse 97 Oximetry Medical Decision Making - Medical Decision Making This is 26 year old female presenting to emergency Department chief complaint of 1 day of left upper quadrant and left lower quadrant abdominal pain, a foul taste in her mouth, and a few episodes of vomiting. Patient reports that every time she ate today she feels that she has to vomit it back up. She reports she' s had some small bites of the nail but is not able tolerate any food. She reports that she's had normal bowel movements today. She reports that she was recently diagnosed with gastritis and was feeling somewhat better 2-3 days after she was discharged from the hospital. Patient reports that that was last week feeling well for the past few days but today she started to have the same sensations again. Lab work was reviewed and negative. Patient received IV Toradol, 2 minutes working, and GI cocktail. Laboratory is reviewed and negative for any acute process. Abdominal x-ray showed no normal process. Patient will be discharged at this time given GI consult. Patient's history plan will comply. Return parameters were discussed. - Lab Data Result diagrams: 03/20/17 17:05 03/20/17 17:05 Lab Results 03/20/17 03/20/17 03/20/17 Range/Units 17:05 17:05 17:05 WBC 8.0 (3.8-10.6) k/uL RBC 4.47 (3.80-5.40) m/uL Hgb 12.4 (11.4-16.0) gm/dL Hct 37.8 (34.0-46.0) % MCV 84.6 (80.0-100.0) fL MCH 27.7 (25.0-35.0) pg MCHC 32.8 (31.0-37.0) g/dL RDW 13.7 (11.5-15.5) % Plt Count 254 (150-450) k/uL Neutrophils % 51 % Lymphocytes % 39 % Monocytes % 5 % Eosinophils % 2 % Basophils % 1 % Neutrophils # 4.1 (1.3-7.7) k/uL Lymphocytes # 3.1 (1.0-4.8) k/uL Monocytes # 0.4 (0-1.0) k/uL Eosinophils # 0.2 (0-0.7) k/uL Basophils # 0.0 (0-0.2) k/uL Sodium 141 (137-145) mmol/L Potassium 4.4 (3.5-5.1) mmol/L Chloride 104 (98-107) mmol/L Carbon Dioxide 26 (22-30) mmol/L Anion Gap 11 mmol/L BUN 12 (7-17) mg/dL Creatinine 0.80 (0.52-1.04) mg/dL Est GFR (MDRD) Af Amer >60 (>60 ml/min/1.73 sqM) Est GFR (MDRD) Non-Af >60 (>60 ml/min/1.73 sqM) Glucose 90 (74-99) mg/dL Calcium 9.8 (8.4-10.2) mg/dL Total Bilirubin 0.2 (0.2-1.3) mg/dL AST 29 (14-36) U/L ALT 43 (9-52) U/L Alkaline Phosphatase 61 (38-126) U/L Total Protein 8.0 (6.3-8.2) g/dL Albumin 4.6 (3.5-5.0) g/dL Amylase 79 (30-110) U/L Lipase 186 (23-300) U/L Urine Color Urine Appearance (Clear) Urine pH (5.0-8.0) Ur Specific [place] (1.001-1.035) Urine Protein (Negative) Urine Glucose (UA) (Negative) Urine Ketones (Negative) Urine Blood (Negative) Urine Nitrite (Negative) Urine Bilirubin (Negative) Urine Urobilinogen (<2.0) mg/dL Ur Leukocyte Esterase (Negative) Urine HCG, Qual Not Detected (Not Detectd) Group A Strep Rapid (Negative) 03/20/17 03/20/17 Range/Units 17:05 17:05 WBC (3.8-10.6) k/uL RBC (3.80-5.40) m/uL Hgb (11.4-16.0) gm/dL Hct (34.0-46.0) % MCV (80.0-100.0) fL MCH (25.0-35.0) pg MCHC (31.0-37.0) g/dL RDW (11.5-15.5) % Plt Count (150-450) k/uL Neutrophils % % Lymphocytes % % Monocytes % % Eosinophils % % Basophils % % Neutrophils # (1.3-7.7) k/uL Lymphocytes # (1.0-4.8) k/uL Monocytes # (0-1.0) k/uL Eosinophils # (0-0.7) k/uL Basophils # (0-0.2) k/uL Sodium (137-145) mmol/L Potassium (3.5-5.1) mmol/L Chloride (98-107) mmol/L Carbon Dioxide (22-30) mmol/L Anion Gap mmol/L BUN (7-17) mg/dL Creatinine (0.52-1.04) mg/dL Est GFR (MDRD) Af Amer (>60 ml/min/1.73 sqM) Est GFR (MDRD) Non-Af (>60 ml/min/1.73 sqM) Glucose (74-99) mg/dL Calcium (8.4-10.2) mg/dL Total Bilirubin (0.2-1.3) mg/dL AST (14-36) U/L ALT (9-52) U/L Alkaline Phosphatase (38-126) U/L Total Protein (6.3-8.2) g/dL Albumin (3.5-5.0) g/dL Amylase (30-110) U/L Lipase (23-300) U/L Urine Color Light Yellow Urine Appearance Clear (Clear) Urine pH 7.0 (5.0-8.0) Ur Specific [place] 1.006 (1.001-1.035) Urine Protein Negative (Negative) Urine Glucose (UA) Negative (Negative) Urine Ketones Negative (Negative) Urine Blood Negative (Negative) Urine Nitrite Negative (Negative) Urine Bilirubin Negative (Negative) Urine Urobilinogen <2.0 (<2.0) mg/dL Ur Leukocyte Esterase Negative (Negative) Urine HCG, Qual (Not Detectd) Group A Strep Rapid Negative (Negative) - Radiology Data Radiology results: report reviewed Evidence of dilated bowel or differential air fluid levels. The bowel gas pattern as instructed. Small amount of residual stool significant. Liver is prominent size extending to the tip of the iliac crest. The osseous structures appear intact. Nose is calcifications are seen within the abdomen or pelvis. No evidence of pneumoperitoneum. No acute process. Unchanged from prior exam. Disposition Clinical Impression: Gastritis Disposition: HOME SELF-CARE Condition: Good Instructions: Gastritis (ED) Additional Instructions: Clinical liquid diet for the next 48 hours. Follow-up with GI specialist. Take the medication as prescribed. Return to the emergency department if any alarming signs or symptoms occur. Prescriptions: Famotidine [Pepcid] 20 mg PO BID #20 tablet Ondansetron Odt [Zofran Odt] 4 mg PO Q8HR PRN #12 tab PRN Reason: Nausea Referrals: Elena Anthony MD [Primary Care Provider] - 1-2 days Simona Rawls MD [STAFF PHYSICIAN] - 1-2 days Time of Disposition: 18:41
[2017-03-20] MEDS ORDERED: MAG HYDROX/AL HYDROX/SIMETH 30 ML, HYOSCYAMINE ELIXIR 10 ML, CIMETIDINE HCL 300 MG, LID... PO STA ×4 (17:04)
[2017-03-20 17:30] LABS: Appearance,Urine Clear (Clear); Bilirubin,Urine Negative (Negative); Glucose,Urine (UA) Negative (Negative); Ketones,Urine Negative (Negative); Leukocyte Esterase,Urine Negative (Negative); Nitrite,Urine Negative (Negative); Protein,Urine Negative (Negative); Specific Gravity,Urine 1.006 (1.001-1.035); UA Billing (MACRO vs. MICRO) CHEM; Urobilinogen,Urine <2.0 mg/dL (<2.0)
[2017-03-20 17:32] LABS: Basophils % (A) 1 %; CH 27.5; CHCM 32.6; Eosinophils # (A) 0.2 k/uL (0-0.7); Eosinophils % (A) 2 %; HCT 37.8 % (34.0-46.0); HDW 2.15; HGB 12.4 gm/dL (11.4-16.0); Luc % (Auto) 3; Lymphocytes # (A) 3.1 k/uL (1.0-4.8); Lymphocytes % (A) 39 %; MCH 27.7 pg (25.0-35.0); MCHC 32.8 g/dL (31.0-37.0); MCV 84.6 fL (80.0-100.0); Mean Platelet Volume 6.6; Monocytes # (A) 0.4 k/uL (0-1.0); Monocytes % (A) 5 %; Neutrophils # (A) 4.1 k/uL (1.3-7.7); Neutrophils % (A) 51 %; RBC 4.47 m/uL (3.80-5.40); RDW 13.7 % (11.5-15.5); WBC (Perox) 7.87
[2017-03-20 17:40] LABS: ALT 43 U/L (9-52); AST 29 U/L (14-36); Alkaline Phosphatase 61 U/L (38-126); Amylase 79 U/L (30-110); Anion Gap 11 mmol/L; Blood Urea Nitrogen 12 mg/dL (7-17); Calcium 9.8 mg/dL (8.4-10.2); Carbon Dioxide 26 mmol/L (22-30); Chloride 104 mmol/L (98-107); Glucose 90 mg/dL (74-99); Non-African American GFR(MDRD) >60 (>60 ml/min/1.73 sqM); Potassium 4.4 mmol/L (3.5-5.1); Sodium 141 mmol/L (137-145); Total Bilirubin 0.2 mg/dL (0.2-1.3)
[2017-03-20] MEDS ORDERED: MORPHINE SULFATE 2 MG/ML SYRINGE IVP ONE (18:08)
--- NOTE | 2017-03-20 18:28 | XR ---
EXAMINATION TYPE: XR KUB DATE OF EXAM: 03/20/2017 COMPARISON: 02/25/2017. HISTORY: Left-sided abdominal pain with nausea and vomiting. History of gastritis. TECHNIQUE: Single upright abdominal radiograph was obtained. FINDINGS: There is no evidence of dilated bowel or differential air-fluid levels. The bowel gas patte rn is nonobstructive. Small amount of residual stool is seen throughout the colon. Liver is prominent in size extending to the tip of the right iliac crest. Osseous structures appear intact. No suspicio us calcifications are seen within the abdomen or pelvis. No evidence of pneumoperitoneum. IMPRESSION: No acute intra-abdominal pathology. Nonobstructive bowel gas pattern.
--- NOTE | 2017-03-20 18:30 | XR ---
EXAMINATION TYPE: XR soft tissue neck DATE OF EXAM: 03/20/2017 COMPARISON: 07/20/2016. HISTORY: Neck pain TECHNIQUE: 2 radiographic views of the cervical spine were obtained. FINDINGS: There is straightening of the usual cervical lordosis. Cervical bodies maintain appropriate height and alignment. No prevertebral soft tissue swelling. No radiopaque foreign bodies are appreci ated. Facets are aligned. IMPRESSION: No acute process, unchanged from the prior exam.
[2017-03-20 19:14] VITALS: BP 115/78; PULSE 78; RESP 20; TEMP 98
== END 2017-03-20 19:21 | disposition home or self-care (01) ==
LOC: EC 15:33
DX: K29.70 Gastritis, unspecified, without bleeding (principal); R11.10 Vomiting, unspecified; R31.9 Hematuria, unspecified; R10.32 Left lower quadrant pain; M79.7 Fibromyalgia; F32.9 Major depressive disorder, single episode, unspecified; F41.9 Anxiety disorder, unspecified; F17.200 Nicotine dependence, unspecified, uncomplicated; Z79.1 Long term (current) use of non-steroidal anti-inflammatories (NSAID); Z79.899 Other long term (current) drug therapy; Z87.19 Personal history of other diseases of the digestive system
CPT/HCPCS: 99284; 96374; 96375 ×2; 96361 ×2; 36415; 80053; 82150; 83690; 85025; 81003; 81025; 87081; 87430; 70360; 74000; J2405; J1885; J2270

== ENCOUNTER → 2017-04-17 | Outpatient (CLI) | payer OTHER ==
--- NOTE | 2017-04-18 07:23 | CT ---
EXAMINATION TYPE: CT brain wo con DATE OF EXAM: 04/17/2017 COMPARISON: 03/13/2016 INDICATION: Headaches x 1 year +. DLP: 1121.00 mGycm, Automated exposure control for dose reduction was used. CONTRAST: None CT of the brain is performed utilizing 3 mm thick sections through the posterior fossa and 3 mm thick sections through the remaining calvarium. Study is performed within 24 hours of arrival to the hosp [facility]. No abnormal hyperdensity is present to suggest an acute intracranial hemorrhage. No mass lesion is evident. There is some calcification along the anterior falx without significant ef facement of the adjacent brain. No acute infarcts are evident. Ventricles and sulci are appropriate for the patient age. Paranasal sinuses and mastoid air cells within the [id number] are clear. IMPRESSIONS: 1. Normal CT Brain
== END | disposition home or self-care (01) ==
LOC: RADCTMAIN 19:20
PROVIDERS: ATTEND Family Medicine
DX: G44.85 Primary stabbing headache (principal)
CPT/HCPCS: 70450

== ENCOUNTER 2017-05-29 18:59 | Emergency (ER) | payer OTHER ==
--- NOTE | 2017-05-29 19:14 | ED ---
General Adult HPI - General Chief complaint: Skin/Abscess/Foreign Body Stated complaint: hives Time Seen by Provider: 05/29/17 19:13 Source: patient Mode of arrival: ambulatory Limitations: no limitations - History of Present Illness Initial comments: Patient is a 27-year-old female with past medical history of anxiety who presents to the emergency department for evaluation of anxiety and hives on her hands. Patient states that in the past she has develops hives when she gets very anxious. She was previously prescribed Xanax, however she states that her physician's office was closed down and she had a establish care with a new primary care doctor who advised her that it is not healthy to remain on Xanax long-term and that she should be on another medication to manage her anxiety. For this she was prescribed BuSpar. 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 Patient states that recently her sales of been very low because there have been very many customers coming in, she states that today she was just sitting at work and didn't have any sales and she began to feel very anxious and as though she's been wasting her time in this career choice. Patient states that she progressively felt more and more anxious throughout the afternoon. She states that this evening she began experiencing itchiness of her hands which is consistent with previous episodes of anxiety attack with development of hives. She states she noticed redness coming up the arms. At that time she decided to leave work and come to the emergency department for further evaluation. Patient denies any associated symptoms including fevers, chills, nausea, vomiting, chest pain or trouble breathing. She states that other than feeling anxious today she's been doing well. She denies any depression, suicidal or homicidal thoughts. She denies any hallucinations or delusions. Patient has close follow-up with a primary care physician a good social support. - Related Data Home Medications Medication Instructions Recorded Confirmed DULoxetine HCL [Cymbalta] 30 mg PO DAILY 09/16/16 05/29/17 Baclofen [Lioresal] 20 mg PO BID 03/07/17 05/29/17 Gabapentin [Neurontin] 400 mg PO QID 03/07/17 05/29/17 Naproxen [Naproxen] 500 mg PO Q12H PRN 03/07/17 05/29/17 Omeprazole [PriLOSEC] 20 mg PO DAILY 03/07/17 05/29/17 Famotidine [Pepcid] 20 mg PO AC-BID 05/29/17 05/29/17 Triamcinolone 0.025% Cream 1 applic TOPICAL BID 05/29/17 05/29/17 [Kenalog 0.025% Cream] busPIRone HCl [Buspar] 10 mg PO BID 05/29/17 05/29/17 Allergies Allergy/AdvReac Type Severity Reaction Status Date / Time No Known Allergies Allergy Verified 05/29/17 19:29 Review of Systems ROS Statement: Those systems with pertinent positive or pertinent negative responses have been documented in the HPI. ROS Other: All systems not noted in ROS Statement are negative. Constitutional: Denies: fever, chills Eyes: Denies: vision change Respiratory: Denies: cough, dyspnea Cardiovascular: Denies: chest pain, palpitations Endocrine: Denies: fatigue Gastrointestinal: Denies: abdominal pain, nausea, vomiting Genitourinary: Denies: urgency, dysuria, abnormal menses Musculoskeletal: Denies: back pain Skin: Reports: rash, change in color, pruritus Neurological: Denies: headache, numbness, paresthesias, confusion Psychiatric: Reports: anxiety. Denies: depression, auditory hallucinations, visual hallucinations, homicidal thoughts, suicidal thoughts Hematological/Lymphatic: Denies: easy bleeding, easy bruising Past Medical History Past Medical History: Fibromyalgia Additional Past Medical History / Comment(s): diverticulosis, abdominal pain, IBS History of Any Multi-Drug Resistant Organisms: None Reported Past Surgical History: No Surgical Hx Reported Additional Past Surgical History / Comment(s): COLONOSCOPY AND EGD Past Anesthesia/Blood Transfusion Reactions: No Reported Reaction Past Psychological History: Anxiety, Depression Smoking Status: Current every day smoker Past Alcohol Use History: Occasional Past Drug Use History: None Reported - Past Family History Mother Family Medical History: No Reported History General Exam Limitations: no limitations General appearance: alert, anxious Head exam: Present: atraumatic, normocephalic, normal inspection Eye exam: Present: normal appearance, PERRL, EOMI. Absent: scleral icterus, conjunctival injection, periorbital swelling ENT exam: Present: normal exam, mucous membranes moist Neck exam: Present: normal inspection. Absent: tenderness, meningismus, lymphadenopathy Respiratory exam: Present: normal lung sounds bilaterally. Absent: respiratory distress, wheezes, rales, rhonchi, stridor Cardiovascular Exam: Present: regular rate, normal rhythm, normal heart sounds. Absent: systolic murmur, diastolic murmur, rubs, gallop, clicks GI/Abdominal exam: Present: soft, normal bowel sounds. Absent: distended, tenderness, guarding, rebound, rigid Rectal exam: Present: deferred Extremities exam: Present: normal inspection, full ROM, normal capillary refill. Absent: tenderness, pedal edema, joint swelling, calf tenderness Neurological exam: Present: alert, oriented X3, CN II-XII intact Psychiatric exam: Present: anxious Skin exam: Present: warm, dry, intact, rash, urticaria. Absent: cyanosis, diaphoretic, vesicles, petechiae, pallor, mottled, abrasion Course Vital Signs 05/29/17 05/29/17 19:02 20:26 Temperature 98.5 F 98.6 F Pulse Rate 77 61 Respiratory 20 19 Rate Blood Pressure 139/82 116/65 O2 Sat by Pulse 100 100 Oximetry - Reevaluation(s) Reevaluation #1: 05/29/17 20:35 Patient was reevaluated, reports significant improvement in pruritus and erythema of her hands. I advised patient that he urine test was negative and asked if she would like a by mouth Ativan for her anxiety. Patient states she would prefer to drive home and therefore would decline anxiety medications. She states she would like to drive home now and take a cold showers this usually helps her feel better. 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 Patient states her mother lives close and can pick her up and give her a ride home. Patient was given an ice pack for the pruritus in her hands By mouth Benadryl and urine tests were ordered Urine was negative Patient was reevaluated after by mouth Benadryl and stated that she felt significantly better. Patient states she has calmed down significantly since being in the ER and she declined any benzodiazepines. Patient states she will prefer to be able to drive herself home so she can take a cold shower as this usually calms her and makes her pruritus improved. All questions pertaining to care were answered to the best of my ability. Patient was advised to return to the ED for any acute worsening of her condition or follow-up with her primary care physician 2-3 days to evaluate for resolution of symptoms and discussed future management. - Lab Data Lab Results 05/29/17 Range/Units 19:56 Urine HCG, Qual Not Detected (Not Detectd) Disposition Clinical Impression: Hives Disposition: HOME SELF-CARE Condition: Good Instructions: Urticaria (ED) Referrals: Elena Anthony MD [Primary Care Provider] - 1-2 days
[2017-05-29] MEDS ORDERED: diphenhydrAMINE 50 MG CAP PO STA (19:21)
[2017-05-29 20:27] VITALS: BP 116/65; PULSE 61; RESP 19; TEMP 98.6
== END 2017-05-29 20:49 | disposition home or self-care (01) ==
LOC: EC 18:59
DX: L50.9 Urticaria, unspecified (principal); F41.9 Anxiety disorder, unspecified; K58.9 Irritable bowel syndrome, unspecified; F32.9 Major depressive disorder, single episode, unspecified; M79.7 Fibromyalgia; F17.200 Nicotine dependence, unspecified, uncomplicated; Z79.1 Long term (current) use of non-steroidal anti-inflammatories (NSAID); Z79.899 Other long term (current) drug therapy
CPT/HCPCS: 81025; 99283

== ENCOUNTER 2017-07-11 15:37 | Emergency (ER) | payer OTHER ==
[2017-07-11] MEDS ORDERED: ONDANSETRON 4 MG/2 ML VIAL IVP STA (16:13)
[2017-07-11] MEDS ORDERED: SODIUM CHLORIDE 0.9% 1,000 ML IV STA ×2 (16:13)
[2017-07-11] MEDS ORDERED: FAMOTIDINE 20 MG/2 ML VIAL IV STA (16:13)
[2017-07-11] MEDS ORDERED: DICYCLOMINE 10 MG/ML 2 ML AMP IM STA (16:14)
--- NOTE | 2017-07-11 16:18 | ED ---
General Adult HPI - General Chief complaint: Abdominal Pain Stated complaint: Abd Pain Time Seen by Provider: 07/11/17 16:06 Source: patient, RN notes reviewed, old records reviewed Mode of arrival: wheelchair Limitations: no limitations - History of Present Illness Initial comments: Patient is a 27-year-old female with significant past medical history for IBS, who presents emergency room today with a chief complaint of increased abdominal pain over the last 3 weeks. She states that today it seemed to get worse with increasing diarrhea. She admits to burning sensation to her rectum after several bouts of diarrhea today. She states when she eats or drinks feels it goes straight through her. She does admit this been somewhat nauseated. She states that beginning 3 weeks ago she was experiencing some pain in the epigastric area but states that today it seems to be in the lower abdomen. Patient denies any other complaints or symptoms at this time. Patient denies any recent fever, chills, shortness of breath, chest pain, back pain, numbness or tingling, dysuria or hematuria, constipation, headaches or visual changes, or any other complaints. - Related Data Home Medications Medication Instructions Recorded Confirmed DULoxetine HCL [Cymbalta] 30 mg PO DAILY 09/16/16 07/11/17 Naproxen [Naproxen] 500 mg PO Q12H PRN 03/07/17 07/11/17 Omeprazole [PriLOSEC] 20 mg PO DAILY 03/07/17 07/11/17 Famotidine [Pepcid] 20 mg PO AC-BID PRN 05/29/17 07/11/17 busPIRone HCl [Buspar] 20 mg PO TID 05/29/17 07/11/17 Previous Rx's Medication Instructions Recorded Dicyclomine [Bentyl] 20 mg PO QID #20 tablet 07/11/17 Hydrocortisone Pr Cream 1 applic RECTAL TID #1 tube 07/11/17 [Proctosol-Hc 2.5%] Metoclopramide HCl [Reglan] 10 mg PO Q6HR PRN #5 day 07/11/17 Sucralfate [Carafate] 1 gm PO BID #10 tablet 07/11/17 Allergies Allergy/AdvReac Type Severity Reaction Status Date / Time No Known Allergies Allergy Verified 07/11/17 16:03 Review of Systems ROS Statement: Those systems with pertinent positive or pertinent negative responses have been documented in the HPI. ROS Other: All systems not noted in ROS Statement are negative. Past Medical History Past Medical History: Fibromyalgia Additional Past Medical History / Comment(s): diverticulosis, abdominal pain, IBS History of Any Multi-Drug Resistant Organisms: None Reported Past Surgical History: No Surgical Hx Reported Additional Past Surgical History / Comment(s): COLONOSCOPY AND EGD Past Anesthesia/Blood Transfusion Reactions: No Reported Reaction Past Psychological History: Anxiety, Depression Smoking Status: Current every day smoker Past Alcohol Use History: Occasional Past Drug Use History: Marijuana - Past Family History Mother Family Medical History: No Reported History General Exam - General Exam Comments Initial Comments: General: The patient is awake and alert, in no distress, and does not appear acutely ill. Eye: Pupils are equal, round and reactive to light, extra-ocular movements are intact. No nystagmus. There is normal conjunctiva bilaterally. No signs of icterus. Ears, nose, mouth and throat: There are moist mucous membranes and no oral lesions. Neck: The neck is supple, there is no tenderness or JVD. Cardiovascular: There is a regular rate and rhythm. No murmur, rub or gallop is appreciated. Respiratory: Lungs are clear to auscultation, respirations are non-labored, breath sounds are equal. No wheezes, stridor, rales, or rhonchi. Gastrointestinal: Normal appearance of abdomen. Normal bowel sounds. Patient has mild tenderness epigastric, and left side of the abdomen both upper and lower quadrants. No rebound tenderness. No guarding. Musculoskeletal: Normal ROM, no tenderness. Strength 5/5. Sensation intact. Pulses equal bilaterally 2+. Neurological: A&O x 3. CN II-XII intact, There are no obvious motor or sensory deficits. Coordination appears grossly intact. Speech is normal. Skin: Skin is warm and dry and no rashes or lesions are noted. Psychiatric: Cooperative, appropriate mood & affect, normal judgment. Limitations: no limitations Course Vital Signs 07/11/17 07/11/17 07/11/17 15:43 17:36 18:29 Temperature 98.5 F Pulse Rate 89 75 72 Respiratory 20 18 18 Rate Blood Pressure 118/76 119/68 110/77 O2 Sat by Pulse 98 100 99 Oximetry Medical Decision Making - Medical Decision Making Patient reexamined at this time shows no signs of distress. She is resting comfortably in stretcher. States she still expresses some pain in her abdomen is soft on palpation. Patient's CT is negative for any acute abnormalities. Her labs are unremarkable. Does have a history of IBS. Have diarrhea earlier today. She does not symptoms are consistent with IBS assessment the past. She was advised to follow-up with her GI specialist. Advised to return to emergency room symptoms increase or worsen. Patient discharged home with medications for symptoms.. Return for any other concerns she states understanding and is in agreement with the plan. - Lab Data Result diagrams: 07/11/17 16:25 07/11/17 16:25 Lab Results 07/11/17 07/11/17 07/11/17 Range/Units 16:25 16:25 16:45 WBC 7.2 (3.8-10.6) k/uL RBC 4.62 (3.80-5.40) m/uL Hgb 13.1 (11.4-16.0) gm/dL Hct 40.1 (34.0-46.0) % MCV 86.9 (80.0-100.0) fL MCH 28.3 (25.0-35.0) pg MCHC 32.6 (31.0-37.0) g/dL RDW 12.9 (11.5-15.5) % Plt Count 239 (150-450) k/uL Neutrophils % 53 % Lymphocytes % 36 % Monocytes % 4 % Eosinophils % 4 % Basophils % 0 % Neutrophils # 3.8 (1.3-7.7) k/uL Lymphocytes # 2.6 (1.0-4.8) k/uL Monocytes # 0.3 (0-1.0) k/uL Eosinophils # 0.3 (0-0.7) k/uL Basophils # 0.0 (0-0.2) k/uL Sodium 140 (137-145) mmol/L Potassium 3.9 (3.5-5.1) mmol/L Chloride 108 H (98-107) mmol/L Carbon Dioxide 24 (22-30) mmol/L Anion Gap 8 mmol/L BUN 12 (7-17) mg/dL Creatinine 0.83 (0.52-1.04) mg/dL Est GFR (MDRD) Af Amer >60 (>60 ml/min/1.73 sqM) Est GFR (MDRD) Non-Af >60 (>60 ml/min/1.73 sqM) Glucose 99 (74-99) mg/dL Calcium 9.1 (8.4-10.2) mg/dL Total Bilirubin 0.2 (0.2-1.3) mg/dL AST 26 (14-36) U/L ALT 42 (9-52) U/L Alkaline Phosphatase 49 (38-126) U/L Total Protein 6.6 (6.3-8.2) g/dL Albumin 3.7 (3.5-5.0) g/dL Amylase 65 (30-110) U/L Lipase 224 (23-300) U/L Urine Color Yellow Urine Appearance Clear (Clear) Urine pH 5.5 (5.0-8.0) Ur Specific B[place]orn 1.033 (1.001-1.035) Urine Protein Trace H (Negative) Urine Glucose (UA) Negative (Negative) Urine Ketones Trace H (Negative) Urine Blood Negative (Negative) Urine Nitrite Negative (Negative) Urine Bilirubin Negative (Negative) Urine Urobilinogen <2.0 (<2.0) mg/dL Ur Leukocyte Esterase Negative (Negative) Urine HCG, Qual (Not Detectd) 07/11/17 Range/Units 16:45 WBC (3.8-10.6) k/uL RBC (3.80-5.40) m/uL Hgb (11.4-16.0) gm/dL Hct (34.0-46.0) % MCV (80.0-100.0) fL MCH (25.0-35.0) pg MCHC (31.0-37.0) g/dL RDW (11.5-15.5) % Plt Count (150-450) k/uL Neutrophils % % Lymphocytes % % Monocytes % % Eosinophils % % Basophils % % Neutrophils # (1.3-7.7) k/uL Lymphocytes # (1.0-4.8) k/uL Monocytes # (0-1.0) k/uL Eosinophils # (0-0.7) k/uL Basophils # (0-0.2) k/uL Sodium (137-145) mmol/L Potassium (3.5-5.1) mmol/L Chloride (98-107) mmol/L Carbon Dioxide (22-30) mmol/L Anion Gap mmol/L BUN (7-17) mg/dL Creatinine (0.52-1.04) mg/dL Est GFR (MDRD) Af Amer (>60 ml/min/1.73 sqM) Est GFR (MDRD) Non-Af (>60 ml/min/1.73 sqM) Glucose (74-99) mg/dL Calcium (8.4-10.2) mg/dL Total Bilirubin (0.2-1.3) mg/dL AST (14-36) U/L ALT (9-52) U/L Alkaline Phosphatase (38-126) U/L Total Protein (6.3-8.2) g/dL Albumin (3.5-5.0) g/dL Amylase (30-110) U/L Lipase (23-300) U/L Urine Color Urine Appearance (Clear) Urine pH (5.0-8.0) Ur Specific [place] (1.001-1.035) Urine Protein (Negative) Urine Glucose (UA) (Negative) Urine Ketones (Negative) Urine Blood (Negative) Urine Nitrite (Negative) Urine Bilirubin (Negative) Urine Urobilinogen (<2.0) mg/dL Ur Leukocyte Esterase (Negative) Urine HCG, Qual Not Detected (Not Detectd) Disposition Clinical Impression: Abdominal pain, IBS (irritable bowel syndrome) Disposition: HOME SELF-CARE Condition: Good Instructions: Abdominal Pain (ED) Additional Instructions: Please use medication as discussed. Please follow-up with family doctor in the next 2 days. Please return to emergency room if the symptoms increase or worsen or for any other concerns. Prescriptions: Dicyclomine [Bentyl] 20 mg PO QID #20 tablet Hydrocortisone Pr Cream [Proctosol-Hc 2.5%] 1 applic RECTAL TID #1 tube Metoclopramide HCl [Reglan] 10 mg PO Q6HR PRN #5 day PRN Reason: Nausea Sucralfate [Carafate] 1 gm PO BID #10 tablet Referrals: Elena Anthony MD [Primary Care Provider] - 1-2 days Simona Rawls MD [STAFF PHYSICIAN] - 1-2 days Time of Disposition: 19:29
[2017-07-11 16:34] LABS: Basophils % (A) 0 %; CH 28.1; CHCM 32.5; Eosinophils # (A) 0.3 k/uL (0-0.7); Eosinophils % (A) 4 %; HCT 40.1 % (34.0-46.0); HDW 2.22; HGB 13.1 gm/dL (11.4-16.0); Luc # (Auto) 0.16; Luc % (Auto) 2; Lymphocytes # (A) 2.6 k/uL (1.0-4.8); Lymphocytes % (A) 36 %; MCH 28.3 pg (25.0-35.0); MCHC 32.6 g/dL (31.0-37.0); MCV 86.9 fL (80.0-100.0); Mean Platelet Volume 6.5; Monocytes # (A) 0.3 k/uL (0-1.0); Monocytes % (A) 4 %; Neutrophils # (A) 3.8 k/uL (1.3-7.7); Neutrophils % (A) 53 %; RBC 4.62 m/uL (3.80-5.40); RDW 12.9 % (11.5-15.5); WBC 7.2 k/uL (3.8-10.6); WBC (Perox) 7.08
[2017-07-11 16:44] LABS: ALT 42 U/L (9-52); AST 26 U/L (14-36); Alkaline Phosphatase 49 U/L (38-126); Amylase 65 U/L (30-110); Anion Gap 8 mmol/L; Blood Urea Nitrogen 12 mg/dL (7-17); Calcium 9.1 mg/dL (8.4-10.2); Carbon Dioxide 24 mmol/L (22-30); Chloride 108 mmol/L (98-107); Glucose 99 mg/dL (74-99); Non-African American GFR(MDRD) >60 (>60 ml/min/1.73 sqM); Potassium 3.9 mmol/L (3.5-5.1); Sodium 140 mmol/L (137-145); Total Bilirubin 0.2 mg/dL (0.2-1.3); Total Protein 6.6 g/dL (6.3-8.2)
[2017-07-11 16:57] LABS: Appearance,Urine Clear (Clear); Bilirubin,Urine Negative (Negative); Glucose,Urine (UA) Negative (Negative); Ketones,Urine Trace (Negative); Leukocyte Esterase,Urine Negative (Negative); Nitrite,Urine Negative (Negative); PH, Urine 5.5 (5.0-8.0); Protein,Urine Trace (Negative); Specific Gravity,Urine 1.033 (1.001-1.035); UA Billing (MACRO vs. MICRO) CHEM; Urobilinogen,Urine <2.0 mg/dL (<2.0)
[2017-07-11] MEDS ORDERED: RX INFO: IV CONTRAST WAS GIVEN 1 EACH MISC MISCELLANE PRN (17:25)
[2017-07-11] MEDS ORDERED: HYDROmorphone 1 MG/ML 1 ML SYRINGE IVP STA ×2 (17:25→19:30)
--- NOTE | 2017-07-11 17:53 | XR ---
EXAMINATION TYPE: XR KUB DATE OF EXAM: 07/11/2017 COMPARISON: NONE HISTORY: Pain and nausea and vomiting TECHNIQUE: 2 upright views FINDINGS: The visualized lung bases and pleural spaces are negative. There is evidence of hepatomegaly. Soft tissues are otherwise unremarkable. There is no bowel obstruction. Bowel gas pattern is within normal limits. No pneumatosis. No pneumope ritoneum. Visualized skeletal structures are unremarkable. IMPRESSION: 1. NO ACUTE PROCESS; NEGATIVE BOWEL EXAMINATION. 2. HEPATOMEGALY EVIDENT.
--- NOTE | 2017-07-11 19:16 | CT ---
EXAMINATION TYPE: CT abdomen pelvis w con DATE OF EXAM: 07/11/2017 COMPARISON: 11/19/2016 HISTORY: Patient complains of generalized abdominal/pelvic pain, dark tarry stools, diarrhea, bloatin g, and a history of IBS. CT DLP: 1044.3 mGycm Automated exposure control for dose reduction was used. TECHNIQUE: Helical acquisition of images was performed from the lung bases through the pelvis. CONTRAST: Performed without Oral Contrast and with IV Contrast, patient injected with 100 mL of Omnipaque 300. FINDINGS: LUNG BASES: No significant abnormality is appreciated. LIVER/GB: No significant abnormality is appreciated. PANCREAS: No significant abnormality is seen. SPLEEN: No significant abnormality is seen. ADRENALS: No significant abnormality is seen. KIDNEYS: No significant abnormality is seen. FREE AIR: No free air is visualized. RETROPERITONEAL ADENOPATHY: None visualized REPRODUCTIVE ORGANS: No significant abnormality is seen URINARY BLADDER: No significant abnormality is seen. PELVIC ADENOPATHY: None visualized. OSSEOUS STRUCTURES: No significant abnormality is seen. BOWEL: No significant abnormality is seen. OTHER: The vasculature is unremarkable. IMPRESSION: NO ACUTE PROCESS.
[2017-07-11 19:46] VITALS: BP 115/80; PULSE 75; RESP 16; TEMP 98
== END 2017-07-11 19:55 | disposition home or self-care (01) ==
LOC: EC 15:37
DX: K58.0 Irritable bowel syndrome with diarrhea (principal); R11.0 Nausea; F32.9 Major depressive disorder, single episode, unspecified; F41.9 Anxiety disorder, unspecified; F17.200 Nicotine dependence, unspecified, uncomplicated; Z79.899 Other long term (current) drug therapy; Z87.19 Personal history of other diseases of the digestive system
CPT/HCPCS: 36415; 80053; 82150; 83690; 85025; 81003; 81025; 74000; 74177; 99285; 96374; 96375 ×2; 96376; 96361 ×3; 96372; J0500; J2405; J1170; Q9967

== ENCOUNTER 2017-12-23 17:55 | Emergency (ER) | payer OTHER ==
[2017-12-23] MEDS ORDERED: SODIUM CHLORIDE 0.9% 1,000 ML IV STA (18:29)
[2017-12-23] MEDS ORDERED: SODIUM CHLORIDE 0.9% 500 ML IV STA (18:29)
[2017-12-23] MEDS ORDERED: ONDANSETRON 4 MG/2 ML VIAL IVP STA (18:29)
[2017-12-23] MEDS ORDERED: FAMOTIDINE 20 MG/2 ML VIAL IV STA (18:54)
[2017-12-23] MEDS ORDERED: KETOROLAC 30 MG/ML 1 ML VIAL IVP STA (18:54)
[2017-12-23 19:06] LABS: ALT 30 U/L (9-52); AST 22 U/L (14-36); Albumin 4.4 g/dL (3.5-5.0); Alkaline Phosphatase 64 U/L (38-126); Amylase 71 U/L (30-110); Anion Gap 11 mmol/L; Blood Urea Nitrogen 10 mg/dL (7-17); Calcium 9.9 mg/dL (8.4-10.2); Carbon Dioxide 23 mmol/L (22-30); Chloride 105 mmol/L (98-107); Glucose 102 mg/dL (74-99); Lipase 141 U/L (23-300); Potassium 4.1 mmol/L (3.5-5.1); Sodium 139 mmol/L (137-145); Total Bilirubin 0.6 mg/dL (0.2-1.3); Total Protein 7.8 g/dL (6.3-8.2)
--- NOTE | 2017-12-23 19:08 | ED ---
Nausea/Vomiting/Diarrhea HPI - General Chief complaint: Nausea/Vomiting/Diarrhea Stated complaint: Diarrhea Time Seen by Provider: 12/23/17 18:29 Source: patient, RN notes reviewed Mode of arrival: wheelchair Limitations: no limitations - History of Present Illness Initial comments: This a 27-year-old female presents emergency Department with chief complaint of nausea vomiting diarrhea. Patient states symptoms started yesterday. Patient states symptoms worsened today. She was seen by my expressed given [place] states that she has tried that but states that she continued to vomit. Patient denies any known fever or chills at home. Denies headache, dizziness, chest pain, shortness breath, sore throat. She states she has diffuse abdominal burning no localized pain. Patient denies any dysuria, hematuria denies any vaginal bleeding or vaginal discharge. Denies any chance . - Related Data Home Medications Medication Instructions Recorded Confirmed Omeprazole [PriLOSEC] 20 mg PO DAILY PRN 03/07/17 12/23/17 hydrOXYzine HCL [Atarax] 25 mg PO QID PRN 08/14/17 12/23/17 Ranitidine HCl [Zantac] 150 mg PO HS 09/24/17 12/23/17 DULoxetine HCL [Cymbalta] 30 mg PO DAILY 12/23/17 12/23/17 Previous Rx's Medication Instructions Recorded Metoclopramide [Reglan] 10 mg PO TID PRN #15 tab 12/23/17 Allergies Allergy/AdvReac Type Severity Reaction Status Date / Time No Known Allergies Allergy Verified 12/23/17 19:16 Review of Systems ROS Statement: Those systems with pertinent positive or pertinent negative responses have been documented in the HPI. ROS Other: All systems not noted in ROS Statement are negative. Past Medical History Past Medical History: Fibromyalgia Additional Past Medical History / Comment(s): diverticulosis, abdominal pain, IBS History of Any Multi-Drug Resistant Organisms: None Reported Past Surgical History: No Surgical Hx Reported Additional Past Surgical History / Comment(s): COLONOSCOPY AND EGD Past Anesthesia/Blood Transfusion Reactions: No Reported Reaction Past Psychological History: Anxiety, Depression Smoking Status: Current every day smoker Past Alcohol Use History: Occasional Past Drug Use History: Marijuana - Past Family History Mother Family Medical History: No Reported History General Exam Limitations: no limitations General appearance: alert, in no apparent distress Head exam: Present: atraumatic, normocephalic, normal inspection Neck exam: Present: normal inspection, full ROM. Absent: tenderness, meningismus, lymphadenopathy Respiratory exam: Present: normal lung sounds bilaterally. Absent: respiratory distress, wheezes, rales, rhonchi, stridor Cardiovascular Exam: Present: regular rate, normal rhythm, normal heart sounds. Absent: systolic murmur, diastolic murmur, rubs, gallop, clicks GI/Abdominal exam: Present: soft, tenderness (Mild diffuse), normal bowel sounds. Absent: distended, guarding, rebound, rigid Back exam: Absent: CVA tenderness (R), CVA tenderness (L) Skin exam: Present: warm, dry, intact, normal color. Absent: rash Course Vital Signs 12/23/17 12/23/17 18:26 19:22 Temperature 99.4 F 98.8 F Pulse Rate 88 77 Respiratory 20 20 Rate Blood Pressure 126/66 123/66 O2 Sat by Pulse 99 99 Oximetry Medical Decision Making - Medical Decision Making 27-year-old female presents emergency Department chief complaint nausea vomiting diarrhea. Patient's symptoms consistent with gastroenteritis. Patient has C. diff negative patient is requesting water at this time and feels improved. Patient will be discharged with Reglan as she has Zofran currently. She is advised to restart her omeprazole. Return parameters were discussed. - Lab Data Result diagrams: 12/23/17 18:44 12/23/17 18:44 Lab Results 12/23/17 12/23/17 12/23/17 Range/Units 18:44 18:44 19:17 WBC 11.5 H (3.8-10.6) k/uL RBC 4.97 (3.80-5.40) m/uL Hgb 13.9 (11.4-16.0) gm/dL Hct 40.8 (34.0-46.0) % MCV 82.1 (80.0-100.0) fL MCH 27.9 (25.0-35.0) pg MCHC 34.0 (31.0-37.0) g/dL RDW 12.6 (11.5-15.5) % Plt Count 358 (150-450) k/uL Neutrophils % 87 % Lymphocytes % 8 % Monocytes % 2 % Eosinophils % 2 % Basophils % 0 % Neutrophils # 10.0 H (1.3-7.7) k/uL Lymphocytes # 1.0 (1.0-4.8) k/uL Monocytes # 0.3 (0-1.0) k/uL Eosinophils # 0.2 (0-0.7) k/uL Basophils # 0.0 (0-0.2) k/uL Sodium 139 (137-145) mmol/L Potassium 4.1 (3.5-5.1) mmol/L Chloride 105 (98-107) mmol/L Carbon Dioxide 23 (22-30) mmol/L Anion Gap 11 mmol/L BUN 10 (7-17) mg/dL Creatinine 0.78 (0.52-1.04) mg/dL Est GFR (CKD-EPI)AfAm >90 (>60 ml/min/1.73 sqM) Est GFR (CKD-EPI)NonAf >90 (>60 ml/min/1.73 sqM) Glucose 102 H (74-99) mg/dL Calcium 9.9 (8.4-10.2) mg/dL Total Bilirubin 0.6 (0.2-1.3) mg/dL AST 22 (14-36) U/L ALT 30 (9-52) U/L Alkaline Phosphatase 64 (38-126) U/L Total Protein 7.8 (6.3-8.2) g/dL Albumin 4.4 (3.5-5.0) g/dL Amylase 71 (30-110) U/L Lipase 141 (23-300) U/L Urine Color Urine Appearance (Clear) Urine pH (5.0-8.0) Ur Specific [place] (1.001-1.035) Urine Protein (Negative) Urine Glucose (UA) (Negative) Urine Ketones (Negative) Urine Blood (Negative) Urine Nitrite (Negative) Urine Bilirubin (Negative) Urine Urobilinogen (<2.0) mg/dL Ur Leukocyte Esterase (Negative) Urine RBC (0-5) /hpf Urine WBC (0-5) /hpf Ur Squamous Epith Cells (0-4) /hpf Amorphous Sediment (None) /hpf Urine Mucus (None) /hpf Urine HCG, Qual (Not Detectd) C. difficile (EIA) Intrp Negative (Negative) 12/23/17 12/23/17 Range/Units 19:53 19:53 WBC (3.8-10.6) k/uL RBC (3.80-5.40) m/uL Hgb (11.4-16.0) gm/dL Hct (34.0-46.0) % MCV (80.0-100.0) fL MCH (25.0-35.0) pg MCHC (31.0-37.0) g/dL RDW (11.5-15.5) % Plt Count (150-450) k/uL Neutrophils % % Lymphocytes % % Monocytes % % Eosinophils % % Basophils % % Neutrophils # (1.3-7.7) k/uL Lymphocytes # (1.0-4.8) k/uL Monocytes # (0-1.0) k/uL Eosinophils # (0-0.7) k/uL Basophils # (0-0.2) k/uL Sodium (137-145) mmol/L Potassium (3.5-5.1) mmol/L Chloride (98-107) mmol/L Carbon Dioxide (22-30) mmol/L Anion Gap mmol/L BUN (7-17) mg/dL Creatinine (0.52-1.04) mg/dL Est GFR (CKD-EPI)AfAm (>60 ml/min/1.73 sqM) Est GFR (CKD-EPI)NonAf (>60 ml/min/1.73 sqM) Glucose (74-99) mg/dL Calcium (8.4-10.2) mg/dL Total Bilirubin (0.2-1.3) mg/dL AST (14-36) U/L ALT (9-52) U/L Alkaline Phosphatase (38-126) U/L Total Protein (6.3-8.2) g/dL Albumin (3.5-5.0) g/dL Amylase (30-110) U/L Lipase (23-300) U/L Urine Color Yellow Urine Appearance Cloudy H (Clear) Urine pH 6.5 (5.0-8.0) Ur Specific [place] 1.021 (1.001-1.035) Urine Protein Trace H (Negative) Urine Glucose (UA) Negative (Negative) Urine Ketones Trace H (Negative) Urine Blood Negative (Negative) Urine Nitrite Negative (Negative) Urine Bilirubin Negative (Negative) Urine Urobilinogen <2.0 (<2.0) mg/dL Ur Leukocyte Esterase Large H (Negative) Urine RBC 2 (0-5) /hpf Urine WBC 11 H (0-5) /hpf Ur Squamous Epith Cells 11 H (0-4) /hpf Amorphous Sediment Rare H (None) /hpf Urine Mucus Few H (None) /hpf Urine HCG, Qual Not Detected (Not Detectd) C. difficile (EIA) Intrp (Negative) Disposition Clinical Impression: Gastroenteritis Disposition: HOME SELF-CARE Condition: Stable Instructions: Gastroenteritis (ED) Additional Instructions: Please return to the Emergency Department if symptoms worsen or any other concerns. Prescriptions: Metoclopramide [Reglan] 10 mg PO TID PRN #15 tab PRN Reason: GERD Referrals: Elena Anthony MD [Primary Care Provider] - 1-2 days Time of Disposition: 20:43
[2017-12-23 19:11] LABS: Basophils % (A) 0 %; Eosinophils # (A) 0.2 k/uL (0-0.7); Eosinophils % (A) 2 %; HCT 40.8 % (34.0-46.0); HGB 13.9 gm/dL (11.4-16.0); Lymphocytes % (A) 8 %; MCH 27.9 pg (25.0-35.0); MCV 82.1 fL (80.0-100.0); Mean Platelet Volume 6.8; Monocytes # (A) 0.3 k/uL (0-1.0); Monocytes % (A) 2 %; Neutrophils % (A) 87 %; Platelet Count 358 k/uL (150-450); RBC 4.97 m/uL (3.80-5.40); RDW 12.6 % (11.5-15.5); WBC 11.5 k/uL (3.8-10.6)
[2017-12-23 20:08] LABS: Amorphous Sediment,Urine Rare /hpf; Appearance,Urine Cloudy (Clear); Bilirubin,Urine Negative (Negative); Blood,Urine Negative (Negative); Color,Urine Yellow; Glucose,Urine (UA) Negative (Negative); Ketones,Urine Trace (Negative); Leukocyte Esterase,Urine Large (Negative); Mucus,Urine Few /hpf; PH, Urine 6.5 (5.0-8.0); Protein,Urine Trace (Negative); RBC,Urine 2 /hpf (0-5); Specific Gravity,Urine 1.021 (1.001-1.035); Squamous Epithelial Cell,Urine 11 /hpf (0-4); Urobilinogen,Urine <2.0 mg/dL (<2.0); WBC,Urine 11 /hpf (0-5)
[2017-12-23] MEDS ORDERED: METOCLOPRAMIDE 5 MG/ML 2 ML VIAL IVP STA (20:08)
[2017-12-23] MEDS ORDERED: MORPHINE SULFATE 4 MG/ML SYRINGE IVP ONE (20:08)
[2017-12-23 20:49] VITALS: BP 121/66; PULSE 80; RESP 18; TEMP 98
== END 2017-12-23 20:49 | disposition home or self-care (01) ==
LOC: EC 17:55
DX: K52.9 Noninfective gastroenteritis and colitis, unspecified (principal); M79.7 Fibromyalgia; F41.9 Anxiety disorder, unspecified; F32.9 Major depressive disorder, single episode, unspecified; F17.200 Nicotine dependence, unspecified, uncomplicated; Z79.899 Other long term (current) drug therapy
CPT/HCPCS: 36415; 80053; 82150; 83690; 85025; 81001; 81025; 87324; 87045; 87046; 99284; 96374; 96375 ×4; 96361 ×2; J2270; J2765; J2405; J1885

== ENCOUNTER 2018-01-09 09:28 | Emergency (ER) | payer OTHER ==
[2018-01-09 09:37] VITALS: RESP 16
[2018-01-09] MEDS ORDERED: SODIUM CHLORIDE 0.9% 500 ML IV STA (09:45)
--- NOTE | 2018-01-09 09:48 | ED ---
General Adult HPI - General Chief complaint: Anxiety Stated complaint: panic attack Time Seen by Provider: 01/09/18 09:35 Source: patient, RN notes reviewed Mode of arrival: EMS Limitations: no limitations - History of Present Illness Initial comments: This is a 27-year-old female with who presents emergency Department with epigastric abdominal pain and vomiting. Patient states she was at work had some coffee and also started having severe epigastric abdominal pain she tried to walk it off but it didn't help. Patient called an ambulance and they brought her to the emergency department. Patient was vomiting when I entered the room. Patient states she was not feeling bad prior to drinking the coffee. Patient denies chest pain difficulty breathing or shortness of breath per patient denies any diarrhea recently. Patient denies any fever chills. Patient denies any back pain. Patient denies any recent injury or trauma. Patient states she normally takes rimantadine and that is only medication she takes. Patient does have a history of IBS. Patient states she normally does not have any symptoms like this. - Related Data Home Medications Medication Instructions Recorded Confirmed Omeprazole [PriLOSEC] 20 mg PO DAILY PRN 03/07/17 01/09/18 Ranitidine HCl [Zantac] 150 mg PO HS 09/24/17 01/09/18 DULoxetine HCL [Cymbalta] 30 mg PO DAILY 12/23/17 01/09/18 Naproxen [Naproxen] 500 mg PO BID 01/09/18 01/09/18 Previous Rx's Medication Instructions Recorded Metoclopramide [Reglan] 10 mg PO TID PRN #15 tab 12/23/17 Allergies Allergy/AdvReac Type Severity Reaction Status Date / Time No Known Allergies Allergy Verified 01/09/18 09:41 Review of Systems ROS Statement: Those systems with pertinent positive or pertinent negative responses have been documented in the HPI. ROS Other: All systems not noted in ROS Statement are negative. Past Medical History Past Medical History: Fibromyalgia Additional Past Medical History / Comment(s): diverticulosis, abdominal pain, IBS History of Any Multi-Drug Resistant Organisms: None Reported Past Surgical History: No Surgical Hx Reported Additional Past Surgical History / Comment(s): COLONOSCOPY AND EGD Past Anesthesia/Blood Transfusion Reactions: No Reported Reaction Past Psychological History: Anxiety, Depression Smoking Status: Current every day smoker Past Alcohol Use History: Occasional Past Drug Use History: Marijuana - Past Family History Mother Family Medical History: No Reported History General Exam - General Exam Comments Initial Comments: GENERAL: Patient is well-developed and well-nourished. Patient is nontoxic and well- hydrated and is in mild distress. ENT: Neck is soft and supple. No significant lymphadenopathy is noted. Oropharynx is clear. Moist mucous membranes. Neck has full range of motion without eliciting any pain. EYES: The sclera were anicteric and conjunctiva were pink and moist. Extraocular movements were intact and pupils were equal round and reactive to light. Eyelids were unremarkable. PULMONARY: Unlabored respirations. Good breath sounds bilaterally. No audible rales rhonchi or wheezing was noted. CARDIOVASCULAR: There is a regular rate and rhythm without any murmurs gallops or rubs. ABDOMEN: Patient is slight epigastric abdominal pain. No palpable organomegaly was noted. There is no palpable pulsatile mass. SKIN: Skin is clear with no lesions or rashes and otherwise unremarkable. NEUROLOGIC: Patient is alert and oriented x3. Cranial nerves II through XII are grossly intact. Motor and sensory are also intact. Normal speech, volume and content. Symmetrical smile. MUSCULOSKELETAL: Normal extremities with adequate strength and full range of motion. . LYMPHATICS: No significant lymphadenopathy is noted PSYCHIATRIC: Normal psychiatric evaluation. Limitations: no limitations Course Vital Signs 01/09/18 01/09/18 09:35 12:02 Temperature 98.9 F Pulse Rate 70 54 L Respiratory 16 16 Rate Blood Pressure 119/74 108/60 O2 Sat by Pulse 97 100 Oximetry Medical Decision Making - Medical Decision Making EKG shows sinus bradycardia at 55 bpm VT interval is 192 QRS is 82 QT interval 446 QTC is 426. Patient was given Zofran emergency department and she stopped vomiting. Patient continued to feel nauseous another dose of Zofran was given and she felt better at this time. I went back into reevaluate the patient and she was sleeping. - Lab Data Result diagrams: 01/09/18 10:00 01/09/18 10:00 Lab Results 01/09/18 01/09/18 01/09/18 Range/Units 10:00 10:00 11:20 WBC 6.0 (3.8-10.6) k/uL RBC 4.97 (3.80-5.40) m/uL Hgb 13.1 (11.4-16.0) gm/dL Hct 40.5 (34.0-46.0) % MCV 81.4 (80.0-100.0) fL MCH 26.3 (25.0-35.0) pg MCHC 32.3 (31.0-37.0) g/dL RDW 12.8 (11.5-15.5) % Plt Count 317 (150-450) k/uL Neutrophils % 45 % Lymphocytes % 46 % Monocytes % 5 % Eosinophils % 2 % Basophils % 1 % Neutrophils # 2.7 (1.3-7.7) k/uL Lymphocytes # 2.7 (1.0-4.8) k/uL Monocytes # 0.3 (0-1.0) k/uL Eosinophils # 0.1 (0-0.7) k/uL Basophils # 0.0 (0-0.2) k/uL Sodium 147 H (137-145) mmol/L Potassium 4.0 (3.5-5.1) mmol/L Chloride 108 H (98-107) mmol/L Carbon Dioxide 23 (22-30) mmol/L Anion Gap 16 mmol/L BUN 7 (7-17) mg/dL Creatinine 0.66 (0.52-1.04) mg/dL Est GFR (CKD-EPI)AfAm >90 (>60 ml/min/1.73 sqM) Est GFR (CKD-EPI)NonAf >90 (>60 ml/min/1.73 sqM) Glucose 97 (74-99) mg/dL Calcium 9.8 (8.4-10.2) mg/dL Total Bilirubin 0.3 (0.2-1.3) mg/dL AST 24 (14-36) U/L ALT 28 (9-52) U/L Alkaline Phosphatase 56 (38-126) U/L Total Protein 8.0 (6.3-8.2) g/dL Albumin 4.6 (3.5-5.0) g/dL Amylase 88 (30-110) U/L Lipase 168 (23-300) U/L Urine Color Yellow Urine Appearance Clear (Clear) Urine pH 7.0 (5.0-8.0) Ur Specific [place] 1.023 (1.001-1.035) Urine Protein 1+ H (Negative) Urine Glucose (UA) Negative (Negative) Urine Ketones Negative (Negative) Urine Blood Negative (Negative) Urine Nitrite Negative (Negative) Urine Bilirubin Negative (Negative) Urine Urobilinogen <2.0 (<2.0) mg/dL Ur Leukocyte Esterase Negative (Negative) Urine RBC 7 H (0-5) /hpf Urine WBC 1 (0-5) /hpf Ur Squamous Epith Cells 1 (0-4) /hpf Urine Mucus Few H (None) /hpf Disposition Clinical Impression: Epigastric abdominal pain, Acute vomiting Disposition: HOME SELF-CARE Instructions: Generalized Anxiety Disorder (ED) Referrals: Elena Anthony MD [Primary Care Provider] - 1-2 days Time of Disposition: 13:12
[2018-01-09] MEDS: ONDANSETRON 4 MG/2 ML VIAL IVP STA ×2 (10:09→11:59)
[2018-01-09 10:16] LABS: Basophils % (A) 1 %; Eosinophils # (A) 0.1 k/uL (0-0.7); Eosinophils % (A) 2 %; HCT 40.5 % (34.0-46.0); HGB 13.1 gm/dL (11.4-16.0); Lymphocytes # (A) 2.7 k/uL (1.0-4.8); Lymphocytes % (A) 46 %; MCH 26.3 pg (25.0-35.0); MCHC 32.3 g/dL (31.0-37.0); MCV 81.4 fL (80.0-100.0); Mean Platelet Volume 7.1; Monocytes # (A) 0.3 k/uL (0-1.0); Monocytes % (A) 5 %; Neutrophils # (A) 2.7 k/uL (1.3-7.7); Neutrophils % (A) 45 %; Platelet Count 317 k/uL (150-450); RBC 4.97 m/uL (3.80-5.40); RDW 12.8 % (11.5-15.5)
[2018-01-09 10:27] LABS: ALT 28 U/L (9-52); AST 24 U/L (14-36); Albumin 4.6 g/dL (3.5-5.0); Alkaline Phosphatase 56 U/L (38-126); Amylase 88 U/L (30-110); Anion Gap 16 mmol/L; Blood Urea Nitrogen 7 mg/dL (7-17); Calcium 9.8 mg/dL (8.4-10.2); Carbon Dioxide 23 mmol/L (22-30); Chloride 108 mmol/L (98-107); Glucose 97 mg/dL (74-99); Lipase 168 U/L (23-300); Sodium 147 mmol/L (137-145); Total Bilirubin 0.3 mg/dL (0.2-1.3)
--- NOTE | 2018-01-09 10:37 | XR ---
EXAMINATION TYPE: XR KUB DATE OF EXAM: 01/09/2018 COMPARISON: NONE HISTORY: Pain TECHNIQUE: Single supine KUB image of the abdomen is obtained FINDINGS: Small bowel demonstrates no evidence for dilatation or air fluid levels. Gas and fecal material is seen in non-distended colon. No convincing evidence for pneumoperitoneum. No unusual calcifications. The lung bases are clear. The osseous structures are intact. IMPRESSION: 1. Overall nonobstructive bowel gas pattern.
[2018-01-09 11:37] LABS: Appearance,Urine Clear (Clear); Bilirubin,Urine Negative (Negative); Blood,Urine Negative (Negative); Color,Urine Yellow; Glucose,Urine (UA) Negative (Negative); Ketones,Urine Negative (Negative); Leukocyte Esterase,Urine Negative (Negative); Mucus,Urine Few /hpf; Nitrite,Urine Negative (Negative); Protein,Urine 1+ (Negative); RBC,Urine 7 /hpf (0-5); Specific Gravity,Urine 1.023 (1.001-1.035); Squamous Epithelial Cell,Urine 1 /hpf (0-4); Urobilinogen,Urine <2.0 mg/dL (<2.0); WBC,Urine 1 /hpf (0-5)
[2018-01-09] MEDS ORDERED: ONDANSETRON 4 MG/2 ML VIAL IVP STA ×2 (11:45→11:49)
[2018-01-09] MEDS ORDERED: LORazepam 2 MG/ML INJ IV STA ×2 (11:49→13:16)
[2018-01-09] MEDS ORDERED: NITROGLYCERIN OINT 1 INCH/GM PACKET TOPICAL STA (11:49)
[2018-01-09] MEDS ORDERED: ASPIRIN 81 MG PO STA (11:49)
[2018-01-09] MEDS ORDERED: ONDANSETRON 4 MG ODT STARTER PACK 2 TAB BTL PO STA (13:13)
[2018-01-09] MEDS ORDERED: KETOROLAC 60 MG/2 ML VIAL IVP STA (13:15)
[2018-01-09 14:03] VITALS: BP 125/79; PULSE 69; TEMP 97.6
== END 2018-01-09 13:40 | disposition home or self-care (01) ==
LOC: EC 09:28
DX: R11.10 Vomiting, unspecified (principal); R10.13 Epigastric pain; R00.1 Bradycardia, unspecified; M79.7 Fibromyalgia; K58.9 Irritable bowel syndrome, unspecified; F32.9 Major depressive disorder, single episode, unspecified; F41.9 Anxiety disorder, unspecified; F17.200 Nicotine dependence, unspecified, uncomplicated; Z79.1 Long term (current) use of non-steroidal anti-inflammatories (NSAID); Z79.899 Other long term (current) drug therapy; Z87.19 Personal history of other diseases of the digestive system; Z53.8 Procedure and treatment not carried out for other reasons
CPT/HCPCS: 99284; 96374; 96375 ×2; 36415; 93005; 80053; 82150; 83690; 85025; 81001; 74018; 96361; J2060; J2405; J1885; S0119

== ENCOUNTER 2018-06-17 05:14 | Emergency (ER) | payer OTHER ==
[2018-06-17 05:24] VITALS: RESP 18; TEMP 98.1
[2018-06-17] MEDS ORDERED: IBUPROFEN 600 MG TAB PO STA (05:38)
--- NOTE | 2018-06-17 05:43 | ED ---
General Adult HPI - General Chief complaint: Extremity Problem,Nontraumatic Stated complaint: Leg Pain Time Seen by Provider: 06/17/18 05:25 Source: patient, RN notes reviewed, old records reviewed Mode of arrival: wheelchair Limitations: no limitations - History of Present Illness Initial comments: 28-year-old female presents for evaluation of left thigh pain. She states she was at an outside hospital 2 days ago, she had an injection in this thigh of Bentyl which was for abdominal pain. She states those symptoms have resolved that she has pain at the site of injection. She has no reported fever or chills. She states there is worsening pain with ambulation. - Related Data Home Medications Medication Instructions Recorded Confirmed Omeprazole [PriLOSEC] 20 mg PO DAILY PRN 03/07/17 01/09/18 Ranitidine HCl [Zantac] 150 mg PO HS 09/24/17 01/09/18 DULoxetine HCL [Cymbalta] 30 mg PO DAILY 12/23/17 01/09/18 Naproxen 500 mg PO BID 01/09/18 01/09/18 Previous Rx's Medication Instructions Recorded Metoclopramide [Reglan] 10 mg PO TID PRN #15 tab 12/23/17 Cephalexin [Keflex] 500 mg PO Q8HR #21 cap 06/17/18 Ibuprofen [Motrin] 600 mg PO Q8HR PRN #24 tab 06/17/18 Allergies Allergy/AdvReac Type Severity Reaction Status Date / Time No Known Allergies Allergy Verified 06/17/18 05:24 Review of Systems ROS Statement: Those systems with pertinent positive or pertinent negative responses have been documented in the HPI. ROS Other: All systems not noted in ROS Statement are negative. Past Medical History Past Medical History: Fibromyalgia Additional Past Medical History / Comment(s): diverticulosis, abdominal pain, IBS History of Any Multi-Drug Resistant Organisms: None Reported Past Surgical History: No Surgical Hx Reported Additional Past Surgical History / Comment(s): COLONOSCOPY AND EGD Past Anesthesia/Blood Transfusion Reactions: No Reported Reaction Past Psychological History: Anxiety, Depression Smoking Status: Current every day smoker Past Alcohol Use History: Occasional Past Drug Use History: Marijuana - Past Family History Mother Family Medical History: No Reported History General Exam Limitations: no limitations General appearance: alert, in no apparent distress Head exam: Present: atraumatic, normocephalic Eye exam: Present: normal appearance, PERRL ENT exam: Present: normal exam Neck exam: Present: normal inspection. Absent: tenderness, meningismus Respiratory exam: Present: normal lung sounds bilaterally. Absent: respiratory distress Cardiovascular Exam: Present: regular rate, normal rhythm GI/Abdominal exam: Present: soft. Absent: distended, tenderness Extremities exam: Present: tenderness (Tenderness on the anterior surface of the left thigh. There is no warmth. There is no erythema. No induration, no crepitus.) Course Vital Signs 06/17/18 05:21 Temperature 98.1 F Pulse Rate 81 Respiratory 18 Rate Blood Pressure 104/69 O2 Sat by Pulse 99 Oximetry Medical Decision Making - Medical Decision Making 28-year-old female with pain in the left thigh after Bentyl injection 2 days prior. Patient is afebrile, stable vital signs. There is no erythema, no crepitus, no induration, no fluctuance in the left thigh. There is tenderness. Bedside ultrasound is performed, there is no drainable abscess fluid collection. Patient will be prescribed Motrin for pain. She will monitor her temperature. She will repeat present with the development of worsening symptoms. She will follow-up with her primary care physician in the next 1-2 days for reevaluation. Disposition Clinical Impression: Injection site reaction Disposition: HOME SELF-CARE Condition: Good Instructions: Cellulitis (ED) Prescriptions: Cephalexin [Keflex] 500 mg PO Q8HR #21 cap Ibuprofen [Motrin] 600 mg PO Q8HR PRN #24 tab PRN Reason: Pain Is patient prescribed a controlled substance at d/c from ED?: No Referrals: Elena Anthony MD [Primary Care Provider] - 1-2 days Time of Disposition: 05:43
[2018-06-17 07:27] VITALS: BP 110/73; PULSE 71
== END 2018-06-17 07:28 | disposition home or self-care (01) ==
LOC: EC 05:14
DX: M79.652 Pain in left thigh (principal); T44.3X5A Adverse effect of other parasympatholytics [anticholinergics and antimuscarinics] and spasmolytics, initial encounter; F41.9 Anxiety disorder, unspecified; F32.9 Major depressive disorder, single episode, unspecified; F17.200 Nicotine dependence, unspecified, uncomplicated; Z79.899 Other long term (current) drug therapy
CPT/HCPCS: 99283

== ENCOUNTER 2018-06-17 08:23 | Emergency (ER) | payer OTHER ==
[2018-06-17 08:34] VITALS: TEMP 98.2
[2018-06-17] MEDS ORDERED: DIAZEPAM 5 MG TAB PO STA (08:53)
--- NOTE | 2018-06-17 09:12 | ED ---
General Adult HPI - General Chief complaint: Extremity Injury, Lower Stated complaint: LEFT LEG PAIN Time Seen by Provider: 06/17/18 08:43 Source: patient, RN notes reviewed Mode of arrival: wheelchair Limitations: no limitations - History of Present Illness Initial comments: Patient 28-year-old female presenting to the emergency room today with chief complaint of left thigh pain. Injection of Bentyl that was given to her 2 days ago from [facility]. Patient states her shoes for abdominal pain which has improved. She states she's been experiencing left thigh pain over the last 2 days. Patient was seen here in the emergency room earlier today for this. Patient states that she has not begun taking medications of ibuprofen and Keflex that were prescribed earlier. She did have an ultrasound of the left upper leg showing no evidence of any abscess formation. Patient states it feels like a "spasm" from the hip doesn't cause. She does not that she's been training a lot lately. She states her some tightness on the right leg but as bad as the left leg. Patient denies any fever, chills, shortness breath, chest pain, back pain. - Related Data Home Medications Medication Instructions Recorded Confirmed Omeprazole [PriLOSEC] 20 mg PO DAILY PRN 03/07/17 01/09/18 Ranitidine HCl [Zantac] 150 mg PO HS 09/24/17 01/09/18 DULoxetine HCL [Cymbalta] 30 mg PO DAILY 12/23/17 01/09/18 Naproxen 500 mg PO BID 01/09/18 01/09/18 Previous Rx's Medication Instructions Recorded Metoclopramide [Reglan] 10 mg PO TID PRN #15 tab 12/23/17 Cephalexin [Keflex] 500 mg PO Q8HR #21 cap 06/17/18 Cyclobenzaprine [Flexeril] 10 mg PO TID #15 tab 06/17/18 Ibuprofen [Motrin] 600 mg PO Q8HR PRN #24 tab 06/17/18 Allergies Allergy/AdvReac Type Severity Reaction Status Date / Time No Known Allergies Allergy Verified 06/17/18 08:34 Review of Systems ROS Statement: Those systems with pertinent positive or pertinent negative responses have been documented in the HPI. ROS Other: All systems not noted in ROS Statement are negative. Past Medical History Past Medical History: Fibromyalgia Additional Past Medical History / Comment(s): diverticulosis, abdominal pain, IBS History of Any Multi-Drug Resistant Organisms: None Reported Past Surgical History: No Surgical Hx Reported Additional Past Surgical History / Comment(s): COLONOSCOPY AND EGD Past Anesthesia/Blood Transfusion Reactions: No Reported Reaction Past Psychological History: Anxiety, Depression Smoking Status: Current every day smoker Past Alcohol Use History: Occasional Past Drug Use History: Marijuana - Past Family History Mother Family Medical History: No Reported History General Exam Limitations: no limitations Course Vital Signs 06/17/18 08:29 Temperature 98.2 F Pulse Rate 82 Respiratory 20 Rate Blood Pressure 118/62 O2 Sat by Pulse 99 Oximetry Medical Decision Making - Medical Decision Making Patient reexamined at this time shows no signs of distress. Currently sleeping in the stretcher. Patient states that pain to the left leg has improved. Patient has good range of motion. Patient had recent visits to the emergency room had an ultrasound done on previous visit showing no sign of abscess there is no exterior changes or signs of infection. Patient's advised continue with anti-inflammatories and muscle relaxer she describes symptoms of spasm to the left quadrant. Admits that she has been working out more lately. She is advised follow-up the family doctor today or tomorrow. Advised return if symptoms increase or worsen. Advised that muscle relaxers make her drowsy. Disposition Clinical Impression: Left leg pain Disposition: HOME SELF-CARE Condition: Good Instructions: Muscle Spasm (ED) Additional Instructions: Please use medication as discussed. Please follow-up with family doctor in the next 2 days. Please return to emergency room if the symptoms increase or worsen or for any other concerns. Prescriptions: Cyclobenzaprine [Flexeril] 10 mg PO TID #15 tab Is patient prescribed a controlled substance at d/c from ED?: No Referrals: Elena Anthony MD [Primary Care Provider] - 1-2 days Time of Disposition: 09:53
[2018-06-17 10:19] VITALS: BP 99/52; PULSE 53; RESP 18
== END 2018-06-17 10:17 | disposition home or self-care (01) ==
LOC: EC 08:23
DX: M79.605 Pain in left leg (principal); M79.7 Fibromyalgia; F41.9 Anxiety disorder, unspecified; F32.9 Major depressive disorder, single episode, unspecified; F17.200 Nicotine dependence, unspecified, uncomplicated; Z79.1 Long term (current) use of non-steroidal anti-inflammatories (NSAID); Z79.899 Other long term (current) drug therapy
CPT/HCPCS: 99283

== ENCOUNTER 2018-10-13 19:06 | Emergency (ER) | payer OTHER ==
[2018-10-13 20:51] LABS: Appearance,Urine Cloudy (Clear); Bilirubin,Urine Negative (Negative); Blood,Urine Small (Negative); Calcium Oxalate Crystals,Urine Moderate /hpf; Color,Urine Yellow; Glucose,Urine (UA) Negative (Negative); Ketones,Urine Negative (Negative); Leukocyte Esterase,Urine Moderate (Negative); Mucus,Urine Many /hpf; Nitrite,Urine Negative (Negative); Protein,Urine Trace (Negative); RBC,Urine 5 /hpf (0-5); Specific Gravity,Urine 1.024 (1.001-1.035); Squamous Epithelial Cell,Urine 6 /hpf (0-4)
[2018-10-13 21:10] LABS: Basophils % (A) 0 %; Eosinophils # (A) 0.2 k/uL (0-0.7); Eosinophils % (A) 3 %; HCT 39.3 % (34.0-46.0); HGB 12.2 gm/dL (11.4-16.0); Lymphocytes # (A) 3.2 k/uL (1.0-4.8); Lymphocytes % (A) 50 %; MCH 26.4 pg (25.0-35.0); MCV 85.3 fL (80.0-100.0); Mean Platelet Volume 6.8; Monocytes # (A) 0.3 k/uL (0-1.0); Monocytes % (A) 4 %; Neutrophils # (A) 2.5 k/uL (1.3-7.7); Neutrophils % (A) 40 %; Platelet Count 261 k/uL (150-450); WBC 6.3 k/uL (3.8-10.6)
[2018-10-13 21:16] LABS: ALT 23 U/L (9-52); AST 16 U/L (14-36); Albumin 3.5 g/dL (3.5-5.0); Alkaline Phosphatase 32 U/L (38-126); Anion Gap 8 mmol/L; Blood Urea Nitrogen 7 mg/dL (7-17); Calcium 9.2 mg/dL (8.4-10.2); Carbon Dioxide 25 mmol/L (22-30); Chloride 109 mmol/L (98-107); Glucose 96 mg/dL (74-99); Potassium 3.8 mmol/L (3.5-5.1); Sodium 142 mmol/L (137-145); Total Bilirubin 0.3 mg/dL (0.2-1.3); Total Protein 6.1 g/dL (6.3-8.2)
--- NOTE | 2018-10-13 21:31 | US ---
EXAMINATION TYPE: US transvaginal DATE OF EXAM: 10/13/2018 COMPARISON: NONE CLINICAL HISTORY: Pain. pelvic pain with heavy, irregular cycles, TECHNIQUE: TV. Date of LMP: 10/11/2018 EXAM MEASUREMENTS: Uterus: 7.9 x 3.6 x 3.5 cm Endometrial Stripe: 0.6 cm Right Ovary: 2.5 x 2.7 x 2.0 cm Left Ovary: 3.1 x 3.6 x 2.4 cm 1. Uterus: Anteverted wnl 2. Endometrium: wnl 3. Right Ovary: wnl 4. Left Ovary: 1.8cm dominate follicle seen Spectral, color and waveform doppler imaging shows good arterial and venous flow within the ovaries ; there is no evidence for ovarian torsion. 5. Bilateral Adnexa: wnl 6. Posterior cul-de-sac: wnl IMPRESSION: No evidence of ovarian torsion. Negative exam. Normal uterus and endometrium.
[2018-10-13] MEDS ORDERED: ONDANSETRON ODT 4 MG TAB PO STA (21:54)
--- NOTE | 2018-10-13 22:03 | ED ---
Female Urogenital HPI - General Chief complaint: Urogenital Stated complaint: Female Gu Time Seen by Provider: 10/13/18 19:46 Source: patient Mode of arrival: ambulatory Limitations: no limitations - History of Present Illness Initial comments: 28-year-old female with past history of IBS presents today for chief complaint of abnormal vaginal bleeding and cramping. Patient states the past 2 months she has had what appears to be menstruation every other week. Patient does have an implanon implantation. Pt states that in association with the vaginal bleeding she describes as bloating, nausea and occasional vomiting. Addition patient notes bilateral low back pain. She states she has lower abdominal cramping that appears to consistent with menstruation symptoms as well as softer than normal stools. Patient denies any melena or hematochezia. Patient denies any abnormal vaginal discharge. Patient denies any fever or chills. Patient denies any upper abdominal pain, chest pain, shortness breath. Patient denies any abnormal Pap smears. Patient does see [facility] Dr. Davis. Remainder of ROS is negative,Patient denies any numbness or tingling, dysuria or hematuria , constipation, headaches or visual changes, or any other complaints. Upon arrival patient appears well, nontoxic. There are no signs of acute distress. Pt HR elevated however remainder vital signs within normal limits. - Related Data Home Medications Medication Instructions Recorded Confirmed Omeprazole [PriLOSEC] 20 mg PO DAILY PRN 03/07/17 01/09/18 Ranitidine HCl [Zantac] 150 mg PO HS 09/24/17 01/09/18 DULoxetine HCL [Cymbalta] 30 mg PO DAILY 12/23/17 01/09/18 Naproxen 500 mg PO BID 01/09/18 01/09/18 Previous Rx's Medication Instructions Recorded Metoclopramide [Reglan] 10 mg PO TID PRN #15 tab 12/23/17 Cephalexin [Keflex] 500 mg PO Q8HR #21 cap 06/17/18 Cyclobenzaprine [Flexeril] 10 mg PO TID #15 tab 06/17/18 Ibuprofen [Motrin] 600 mg PO Q8HR PRN #24 tab 06/17/18 Allergies Allergy/AdvReac Type Severity Reaction Status Date / Time No Known Allergies Allergy Verified 10/13/18 19:13 Review of Systems ROS Statement: Those systems with pertinent positive or pertinent negative responses have been documented in the HPI. ROS Other: All systems not noted in ROS Statement are negative. Constitutional: Denies: fever, chills ENT: Denies: ear pain, throat pain Respiratory: Denies: cough, dyspnea, wheezes, hemoptysis, stridor Cardiovascular: Denies: chest pain, palpitations, dyspnea on exertion Gastrointestinal: Reports: abdominal pain, nausea, vomiting, diarrhea. Denies: constipation, hematemesis, melena, hematochezia Genitourinary: Reports: abnormal menses. Denies: urgency, dysuria, frequency, hematuria, discharge Musculoskeletal: Reports: back pain Skin: Denies: rash, lesions Neurological: Denies: headache, weakness, numbness, paresthesias, confusion Past Medical History Past Medical History: Fibromyalgia Additional Past Medical History / Comment(s): diverticulosis, abdominal pain, IBS History of Any Multi-Drug Resistant Organisms: None Reported Past Surgical History: No Surgical Hx Reported Additional Past Surgical History / Comment(s): COLONOSCOPY AND EGD Past Anesthesia/Blood Transfusion Reactions: No Reported Reaction Past Psychological History: Anxiety, Depression Smoking Status: Current every day smoker Past Alcohol Use History: Occasional Past Drug Use History: Marijuana - Past Family History Mother Family Medical History: No Reported History General Exam - General Exam Comments Initial Comments: General: The patient is awake and alert, in no distress, and does not appear acutely ill. Eye: Pupils are equal, round and reactive to light, extra-ocular movements are intact. No nystagmus. There is normal conjunctiva bilaterally. No signs of icterus. Ears, nose, mouth and throat: There are moist mucous membranes and no oral lesions. Neck: The neck is supple, there is no tenderness or JVD. Cardiovascular: There is a regular rate and rhythm. No murmur, rub or gallop is appreciated. Respiratory: Lungs are clear to auscultation, respirations are non-labored, breath sounds are equal. No wheezes, stridor, rales, or rhonchi. Gastrointestinal: No noted diaphoresis, jaundice, pallor, protecting postures or squirming. Symmetrical pigmentation of abdomen without signs of inflammation. Umbilicus mildline, inverted without swelling. No dilated veins. Abdomen contour obese, no noted abdominal distention. No visible masses. No peristalsis, aortic pulsations, or ventral hernia. Bowel sounds audible in all 4 quadrants, unremarkable. Pt admits to tenderness with deep palpation of the pelvic region midline of the pelvic region, remainder benign. Liver edge, not palpable. Spleen edge, right and left kidney not palpable. Superior bladder margin non- tender. Special Testing: Negative [place], [place], [place], [place]. Negative Heel Jar test/hong sign. No CVA tenderness. Digital rectal exam deferred.]Negative king turners or cullens sign.] Musculoskeletal: Normal ROM, no tenderness. Strength 5/5. Sensation intact. Pulses equal bilaterally 2+. Neurological: A&O x 3. CN II-XII intact, There are no obvious motor or sensory deficits. Coordination appears grossly intact. Speech is normal. Skin: Skin is warm and dry and no rashes or lesions are noted. Psychiatric: Cooperative, appropriate mood & affect, normal judgment. Pelvic exam. Normal female hair pattern. No external lesions noted. Vaginal tissue pink, moist well rugated. There is vaginal discharge in vault. Small amount of blood noted. No vaginal discharge comfortable. No cervical motion tenderness. No noted adnexal tenderness. There are what appears to be small round lesions on the cervix that are raised, white. All findings were discussed the patient Limitations: no limitations Course Vital Signs 10/13/18 10/13/18 10/14/18 19:10 23:16 00:00 Temperature 99 F 98 F 98.7 F Pulse Rate 111 H 95 78 Respiratory 20 16 18 Rate Blood Pressure 125/77 125/82 126/88 O2 Sat by Pulse 100 97 98 Oximetry Medical Decision Making - Medical Decision Making 20-year-old female coming for chief complaint of abnormal vaginal bleeding, pelvic cramping. Pelvic ultrasound no abnormal findings. No evidence of torsion, free fluid or ectopic . Urine hCG negative. White blood cell count within normal limits. Hemoglobin stable. Pelvic exam revealed small amount of vaginal discharge and blood in vault. Vaginal cultures pending. Patient would like prophylactic treatment for sexually transmitted diseases. Rapid Trichomonas negative. Given calcium oxalate in urine with complaints of back pain and lower pelvic pain, CT of abdomen and pelvis obtained for renal's calculi. However this was negative for renal calculi of acute findings. CT revealed a small free fluid however remainder within normal limits. At this time I do feel patient is stable for discharge with [facility] follow-up for lesions noted on pelvic exam on the cervix as well as for abnormal vaginal bleeding. She appears well, nontoxic and in no acute distress. Patient was instructed to continue [id number] pain medications. Patient is agreeable to plan, denies questions at this time. Patient is discharged in stable condition with follow-up as discussed. All which are primary for discussed at length the patient who verbalized understanding. Case discussed with Dr. Oleary in detail who agrees impression and plan. - Lab Data Result diagrams: 10/13/18 20:49 10/13/18 20:49 Lab Results 10/13/18 10/13/18 10/13/18 Range/Units 20:26 20:26 20:49 WBC 6.3 (3.8-10.6) k/uL RBC 4.60 (3.80-5.40) m/uL Hgb 12.2 (11.4-16.0) gm/dL Hct 39.3 (34.0-46.0) % MCV 85.3 (80.0-100.0) fL MCH 26.4 (25.0-35.0) pg MCHC 31.0 (31.0-37.0) g/dL RDW 13.0 (11.5-15.5) % Plt Count 261 (150-450) k/uL Neutrophils % 40 % Lymphocytes % 50 % Monocytes % 4 % Eosinophils % 3 % Basophils % 0 % Neutrophils # 2.5 (1.3-7.7) k/uL Lymphocytes # 3.2 (1.0-4.8) k/uL Monocytes # 0.3 (0-1.0) k/uL Eosinophils # 0.2 (0-0.7) k/uL Basophils # 0.0 (0-0.2) k/uL Sodium (137-145) mmol/L Potassium (3.5-5.1) mmol/L Chloride (98-107) mmol/L Carbon Dioxide (22-30) mmol/L Anion Gap mmol/L BUN (7-17) mg/dL Creatinine (0.52-1.04) mg/dL Est GFR (CKD-EPI)AfAm (>60 ml/min/1.73 sqM) Est GFR (CKD-EPI)NonAf (>60 ml/min/1.73 sqM) Glucose (74-99) mg/dL Calcium (8.4-10.2) mg/dL Total Bilirubin (0.2-1.3) mg/dL AST (14-36) U/L ALT (9-52) U/L Alkaline Phosphatase (38-126) U/L Total Protein (6.3-8.2) g/dL Albumin (3.5-5.0) g/dL Urine Color Yellow Urine Appearance Cloudy H (Clear) Urine pH 6.0 (5.0-8.0) Ur Specific [place] 1.024 (1.001-1.035) Urine Protein Trace H (Negative) Urine Glucose (UA) Negative (Negative) Urine Ketones Negative (Negative) Urine Blood Small H (Negative) Urine Nitrite Negative (Negative) Urine Bilirubin Negative (Negative) Urine Urobilinogen 2.0 (<2.0) mg/dL Ur Leukocyte Esterase Moderate H (Negative) Urine RBC 5 (0-5) /hpf Urine WBC 5 (0-5) /hpf Ur Squamous Epith Cells 6 H (0-4) /hpf Calcium Oxalate Crystal Moderate H (None) /hpf Urine Mucus Many H (None) /hpf Urine HCG, Qual Not Detected (Not Detectd) Trichomonas Ag (Rapid) (Negative) 10/13/18 10/13/18 Range/Units 20:49 22:10 WBC (3.8-10.6) k/uL RBC (3.80-5.40) m/uL Hgb (11.4-16.0) gm/dL Hct (34.0-46.0) % MCV (80.0-100.0) fL MCH (25.0-35.0) pg MCHC (31.0-37.0) g/dL RDW (11.5-15.5) % Plt Count (150-450) k/uL Neutrophils % % Lymphocytes % % Monocytes % % Eosinophils % % Basophils % % Neutrophils # (1.3-7.7) k/uL Lymphocytes # (1.0-4.8) k/uL Monocytes # (0-1.0) k/uL Eosinophils # (0-0.7) k/uL Basophils # (0-0.2) k/uL Sodium 142 (137-145) mmol/L Potassium 3.8 (3.5-5.1) mmol/L Chloride 109 H (98-107) mmol/L Carbon Dioxide 25 (22-30) mmol/L Anion Gap 8 mmol/L BUN 7 (7-17) mg/dL Creatinine 0.71 (0.52-1.04) mg/dL Est GFR (CKD-EPI)AfAm >90 (>60 ml/min/1.73 sqM) Est GFR (CKD-EPI)NonAf >90 (>60 ml/min/1.73 sqM) Glucose 96 (74-99) mg/dL Calcium 9.2 (8.4-10.2) mg/dL Total Bilirubin 0.3 (0.2-1.3) mg/dL AST 16 (14-36) U/L ALT 23 (9-52) U/L Alkaline Phosphatase 32 L (38-126) U/L Total Protein 6.1 L (6.3-8.2) g/dL Albumin 3.5 (3.5-5.0) g/dL Urine Color Urine Appearance (Clear) Urine pH (5.0-8.0) Ur Specific [place] (1.001-1.035) Urine Protein (Negative) Urine Glucose (UA) (Negative) Urine Ketones (Negative) Urine Blood (Negative) Urine Nitrite (Negative) Urine Bilirubin (Negative) Urine Urobilinogen (<2.0) mg/dL Ur Leukocyte Esterase (Negative) Urine RBC (0-5) /hpf Urine WBC (0-5) /hpf Ur Squamous Epith Cells (0-4) /hpf Calcium Oxalate Crystal (None) /hpf Urine Mucus (None) /hpf Urine HCG, Qual (Not Detectd) Trichomonas Ag (Rapid) Negative (Negative) Disposition Clinical Impression: Abnormal vaginal bleeding, Pelvic cramping Disposition: HOME SELF-CARE Condition: Good Instructions: Dysfunctional Uterine Bleeding (ED) Is patient prescribed a controlled substance at d/c from ED?: No Referrals: Elena Anthony MD [Primary Care Provider] - 1-2 days Time of Disposition: 22:44
--- NOTE | 2018-10-13 22:33 | CT ---
EXAMINATION TYPE: CT abdomen pelvis w con DATE OF EXAM: 10/13/2018 COMPARISON: 07/11/2017 HISTORY: cramps bleeding CT DLP: 841.6 mGycm Automated exposure control for dose reduction was used. TECHNIQUE: Helical acquisition of images was performed from the lung bases through the pelvis. CONTRAST: Performed without Oral Contrast and with IV Contrast, patient injected with 100 mL of Isovue 300. FINDINGS: Lung bases are clear. There is no pleural effusion. Heart size is normal. There is no pericardial eff usion. Liver spleen pancreas and bladder appear normal. Bile ducts are not dilated. There is no adrenal mass . Kidneys show satisfactory contrast opacification. There is no hydronephrosis. Ureters are not dilat ed. There is no sign of free air. There is no ascites. There is no retroperitoneal adenopathy. Bladder distends smoothly. There is no inguinal hernia. There are small amount of free fluid in the p natalie. Uterus is anteverted. The lumbar spine appears intact. I see no bony destructive process. There is no mesenteric edema. The appendix appears normal. I see no intestinal wall thickening. There is a single distended loop of Oxydose small bowel in the left upper quadrant that measures 3.1 cm. IMPRESSION: LOCALIZED SMALL BOWEL DISTENTION COULD RELATE TO MILD ILEUS. I DO NOT SUSPECT A MECHANICAL OBSTRUCTIO N. THIS APPEARS NEW COMPARED TO OLD EXAM. NORMAL APPENDIX. There is a small amount of fluid in the pelvis that is new compared to old exam.
[2018-10-13] MEDS ORDERED: cefTRIAXone 250 MG VIAL IM STA (22:43)
[2018-10-13] MEDS ORDERED: AZITHROMYCIN 500 MG TAB PO STA (22:43)
[2018-10-13] MEDS ORDERED: IBUPROFEN 800 MG TAB PO STA (22:44)
[2018-10-14 00:02] VITALS: BP 126/88; PULSE 78; RESP 18; TEMP 98.7
[2018-10-15 13:44] LABS: C. trachomatis,PCR Positive (Neg,Equiv); Chlamydia trachomatis Source Urine
[2018-10-15 13:47] LABS: N. gonorrhoeae,PCR Negative (Neg,Equiv); Neisseria Source Urine
== END 2018-10-14 | disposition home or self-care (01) ==
LOC: EC 19:06
DX: N93.9 Abnormal uterine and vaginal bleeding, unspecified (principal); R10.2 Pelvic and perineal pain; R11.2 Nausea with vomiting, unspecified; M54.5 Low back pain; K58.9 Irritable bowel syndrome, unspecified; M79.7 Fibromyalgia; F32.9 Major depressive disorder, single episode, unspecified; F41.9 Anxiety disorder, unspecified; F17.200 Nicotine dependence, unspecified, uncomplicated; Z79.899 Other long term (current) drug therapy
CPT/HCPCS: 36415; 80053; 85025; 81001; 81025; 87808; 87491; 87591; 87070; 93975; 76830; 74177; 99284; 96372; J0696; Q9967; 87205

== ENCOUNTER 2019-04-05 19:16 | Emergency (ER) | payer OTHER ==
[2019-04-05 19:46] VITALS: RESP 18
[2019-04-05] MEDS ORDERED: KETOROLAC 60 MG/2 ML VIAL IM STA (20:41)
[2019-04-05] MEDS ORDERED: hydrOXYzine HCL 25 MG TAB PO STA ×2 (20:41→20:46)
--- NOTE | 2019-04-05 21:22 | XR ---
EXAMINATION TYPE: XR lumbar spine 2 or 3V DATE OF EXAM: 04/05/2019 COMPARISON: 09/16/2016 HISTORY: Back pain TECHNIQUE: 3 views FINDINGS: Lumbar vertebra have normal spacing and alignment. Posterior elements are intact. Sacroilia c joints appear normal. IMPRESSION: Normal lumbar spine. No change.
--- NOTE | 2019-04-05 22:11 | ED ---
General Adult HPI - General Chief complaint: Recheck/Abnormal Lab/Rx Stated complaint: hand & leg tingling/achy Time Seen by Provider: 04/05/19 19:58 Source: patient, RN notes reviewed, old records reviewed Mode of arrival: wheelchair Limitations: no limitations - History of Present Illness Initial comments: 28-year-old female patient past medical history of fibromyalgia, irritable bowel syndrome presents to ED with chief complaint of right paralumbar back pain. Patient reports that she was doing vigorous walking at least she aggravated her back. Patient states that she does have pain with walking and physical movement in her right paralumbar region. Patient denies any loss of bowel or bladder control, saddle anesthesia, lower extremity weakness, recent falls. Patient has secondary complaint of some minor anxiety. Patient reports that she is very anxious about her back hurting and had some transient paresthesias in her hands which resolved without intervention. Patient denies any other symptoms currently. Patient denies any chest pain shortness of breath abdominal pain nausea vomiting or diarrhea. Patient states that she cannot be because she is currently on her menses and she uses control regularly. Systemic: Pt denies fatigue, fever/chills, rash. Pt denies weakness, night sweats, weight loss. Neuro: Pt denies headache, visual disturbances, syncope or pre-syncope. HEENT: Pt denies ocular discharge or irritation, otalgia, rhinorrhea, pharyngitis or notable lymphadenopathy. Cardiopulmonary: Pt denies chest pain, SOB, heart palpitations, dyspnea on exertion. Abdominal/GI: Pt denies abdominal pain, n/v/d. : Pt denies dysuria, burning w/ urination, frequency/urgency. Denies new onset urinary or bowel incontinence. MSK: Pt denies loss of strength or function in extremities. Neuro: Pt denies new onset weakness, paresthesias. - Related Data Previous Rx's Medication Instructions Recorded Cyclobenzaprine [Flexeril] 1 - 2 tab PO TID #20 tablet 04/05/19 predniSONE 50 mg PO DAILY #5 tab 04/05/19 Allergies Allergy/AdvReac Type Severity Reaction Status Date / Time No Known Allergies Allergy Verified 04/05/19 19:56 Review of Systems ROS Statement: Those systems with pertinent positive or pertinent negative responses have been documented in the HPI. ROS Other: All systems not noted in ROS Statement are negative. Past Medical History Past Medical History: Fibromyalgia Additional Past Medical History / Comment(s): diverticulosis, abdominal pain, IBS History of Any Multi-Drug Resistant Organisms: None Reported Past Surgical History: No Surgical Hx Reported Additional Past Surgical History / Comment(s): COLONOSCOPY AND EGD Past Anesthesia/Blood Transfusion Reactions: No Reported Reaction Past Psychological History: Anxiety, Depression Smoking Status: Current every day smoker Past Alcohol Use History: Occasional Past Drug Use History: Marijuana - Past Family History Mother Family Medical History: No Reported History General Exam - General Exam Comments Initial Comments: Constitutional: NAD, AOX3, Pt has pleasant affect. HEENT: NC/AT, trachea midline, neck supple, no lymphadenopathy. Posterior pharynx non erythematous, without exudates. External ears appear normal, without discharge. Mucous membranes moist. Eyes PERRLA, EOM intact. There is no scleral icterus. No pallor noted. Cardiopulmonary: RRR, no murmurs, rubs or gallops, no JVD noted. Lungs CTAB in anterior and posterior mart. No peripheral edema. Abdominal exam: Abdomen soft and non-distended. Abdomen non-tender to palpation in all 4 quadrants. Bowel sounds active in LLQ. No hepatosplenomegaly. No ecchymosis Neuro: CN II-XII intact. No nuchal rigidity. No raccon eyes, no díaz sign, no hemotympanum. No cervical spinal tenderness. Full active range of motion of cervical spine. MSK: No midline cervical thoracic lumbar tenderness. No posterior calf tenderness bilaterally, homans sign negative bilaterally. Right paralumbar spine mildly tender to palpation. Bilateral 5 strength psoas and quadriceps muscles. Ambulatory without difficulty. Right straight leg raise positive, left straight leg raise negative. Posterior tibialis and radial pulse +2 bilaterally. Sensation intact in upper and lower extremities. Full active ROM in upper and lower extremities, 5/5 stregnth. Limitations: no limitations Course Vital Signs 04/05/19 04/05/19 04/05/19 19:39 20:19 21:10 Temperature 98.4 F Pulse Rate 69 71 Respiratory 18 18 Rate Blood Pressure 132/72 105/58 112/55 O2 Sat by Pulse 100 99 Oximetry Medical Decision Making - Medical Decision Making 28-year-old female patient past medical history of fibromyalgia, irritable bowel syndrome presents to ED with chief complaint of right paralumbar back pain. Patient reports that she was doing vigorous walking at least she aggravated her back. Patient states that she does have pain with walking and physical movement in her right paralumbar region. Patient denies any loss of bowel or bladder control, saddle anesthesia, lower extremity weakness, recent falls. Patient has secondary complaint of some minor anxiety. Patient reports that she is very anxious about her back hurting and had some transient paresthesias in her hands which resolved without intervention. Patient denies any other symptoms currently. Patient denies any chest pain shortness of breath abdominal pain nausea vomiting or diarrhea. Patient states that she cannot be because she is currently on her menses and she uses control regularly. Pt VSS, afebrile. Physical exam displayed: No midline cervical thoracic lumbar tenderness. No posterior calf tenderness bilaterally, homans sign negative bilaterally. Right paralumbar spine mildly tender to palpation. Bilateral 5 strength psoas and quadriceps muscles. Ambulatory without difficulty. Right straight leg raise positive, left straight leg raise negative. Posterior tibialis and radial pulse +2 bilaterally. Sensation intact in upper and lower extremities. Full active ROM in upper and lower extremities, 5/5 stregnth. Plain film of lumbar spine displayed no acute process, no change. Patient administered home dose of hydroxyzine. Patient administered Toradol. A symptoms improved significant after Toradol. Patient discharged with steroids and muscle relaxers. Patient to follow up with primary care provider in 1-2 days continued evaluation. Patient given orthopedic consult symptoms if persist. Pt denies any suicidal or homicidal ideations. Case discussed with Dr. Al. Disposition Clinical Impression: Lumbar back sprain Disposition: HOME SELF-CARE Condition: Stable Instructions (If sedation given, give patient instructions): Acute Low Back Pain (ED), Low Back Strain (ED) Additional Instructions: Patient to adhere to previously discussed treatment plan and will take medication(s) as directed. Patient to follow up with PCP in 1-2 days. Patient to return to ED if symptoms do not improve. Medications as directed. Follow-up with primary care provider in 1-2 days. Return to ER if condition worsens in any way. Follow up with orthopedic consult if symptoms persist. Prescriptions: Cyclobenzaprine [Flexeril] 1 - 2 tab PO TID #20 tablet predniSONE 50 mg PO DAILY #5 tab Is patient prescribed a controlled substance at d/c from ED?: No Referrals: Elena Anthony MD [Primary Care Provider] - 1-2 days Duncan Higgins MD [Medical Doctor] - 1-2 days
[2019-04-05 22:34] VITALS: BP 116/72; PULSE 56; TEMP 98.3
== END 2019-04-05 22:32 | disposition home or self-care (01) ==
LOC: EC 19:16
DX: S33.5XXA Sprain of ligaments of lumbar spine, initial encounter (principal); F41.9 Anxiety disorder, unspecified; R20.0 Anesthesia of skin; F17.200 Nicotine dependence, unspecified, uncomplicated; Z53.8 Procedure and treatment not carried out for other reasons
CPT/HCPCS: 72100; 99284; 96372; J1885

== ENCOUNTER 2019-04-26 15:22 | Emergency (ER) | payer OTHER ==
--- NOTE | 2019-04-26 15:49 | ED ---
Syncope HPI - General Stated Complaint: Syncope Time Seen by Provider: 04/26/19 15:31 Source: RN notes reviewed, old records reviewed Limitations: no limitations - History of Present Illness Initial Comments: This is a 20-year-old female the ER for evaluation. Patient very anxious on arrival to ER. Patient had significant syncopal event at work today. Patient has no headache chest pain shortness with her bowel pain, does admit to anxiety no drugs or alcohol abuse, she does have prior history of syncope. History of chronic pain. No current pain medication. MD Complaint: loss of consciousness, felt faint, collapsed -: hour(s) Prodromal Symptoms: none -: second(s) Witnessed: yes - by bystander Injuries Sustained Associated with Event: None Current Symptoms: back to baseline History: previous syncopal episode Context: at rest, standing up Treatments Prior to Arrival: none - Related Data Home Medications Medication Instructions Recorded Confirmed hydrOXYzine HCL [Atarax] 50 mg PO TID PRN 04/26/19 04/26/19 Previous Rx's Medication Instructions Recorded Cyclobenzaprine [Flexeril] 1 - 2 tab PO TID #20 tablet 04/05/19 Allergies Allergy/AdvReac Type Severity Reaction Status Date / Time morphine Allergy Unknown Verified 04/26/19 16:33 Review of Systems ROS Statement: Those systems with pertinent positive or pertinent negative responses have been documented in the HPI. ROS Other: All systems not noted in ROS Statement are negative. Past Medical History Past Medical History: Fibromyalgia Additional Past Medical History / Comment(s): diverticulosis, abdominal pain, IBS History of Any Multi-Drug Resistant Organisms: None Reported Past Surgical History: No Surgical Hx Reported Additional Past Surgical History / Comment(s): COLONOSCOPY AND EGD Past Anesthesia/Blood Transfusion Reactions: No Reported Reaction Past Psychological History: Anxiety, Depression Smoking Status: Current every day smoker Past Alcohol Use History: Occasional Past Drug Use History: Marijuana - Past Family History Mother Family Medical History: No Reported History General Exam General appearance: alert, in no apparent distress Head exam: Present: atraumatic, normocephalic, normal inspection Eye exam: Present: normal appearance, PERRL, EOMI. Absent: scleral icterus, c onjunctival injection, periorbital swelling ENT exam: Present: normal exam, mucous membranes moist Neck exam: Present: normal inspection. Absent: tenderness, meningismus, lymphadenopathy Respiratory exam: Present: normal lung sounds bilaterally. Absent: respiratory distress, wheezes, rales, rhonchi, stridor Cardiovascular Exam: Present: regular rate, normal rhythm, normal heart sounds. Absent: systolic murmur, diastolic murmur, rubs, gallop, clicks GI/Abdominal exam: Present: soft, normal bowel sounds. Absent: distended, tenderness, guarding, rebound, rigid Extremities exam: Present: normal inspection, full ROM, normal capillary refill. Absent: tenderness, pedal edema, joint swelling, calf tenderness Back exam: Present: normal inspection Neurological exam: Present: alert, oriented X3, CN II-XII intact Psychiatric exam: Present: normal affect, normal mood Skin exam: Present: warm, dry, intact, normal color. Absent: rash Course Vital Signs 04/26/19 04/26/19 04/26/19 15:35 16:38 17:30 Temperature 98.3 F Pulse Rate 56 L 59 L 54 L Respiratory 18 18 18 Rate Blood Pressure 127/76 124/78 120/75 O2 Sat by Pulse 97 100 Oximetry 04/26/19 18:30 Temperature Pulse Rate 64 Respiratory 18 Rate Blood Pressure 127/83 O2 Sat by Pulse 98 Oximetry - Reevaluation(s) Reevaluation #1: 04/26/19 19:35 Medical record reviewed Reevaluation #2: 04/26/19 19:35 No significant complaints EKG Findings - EKG Comments: EKG Findings:: EKG shows sinus bradycardia rate of 53, MN 184, QRS 86, QTc 401 Medical Decision Making - Medical Decision Making 20 female with syncopal episode EKG CT ultrasound labwork negative. Patient can be discharged home - Lab Data Result diagrams: 04/26/19 16:18 04/26/19 16:18 Lab Results 04/26/19 04/26/19 04/26/19 Range/Units 16:18 16:18 16:18 WBC 9.3 (3.8-10.6) k/uL RBC 4.41 (3.80-5.40) m/uL Hgb 11.9 (11.4-16.0) gm/dL Hct 37.2 (34.0-46.0) % MCV 84.2 (80.0-100.0) fL MCH 27.1 (25.0-35.0) pg MCHC 32.1 (31.0-37.0) g/dL RDW 13.1 (11.5-15.5) % Plt Count 253 (150-450) k/uL Neutrophils % 39 % Lymphocytes % 52 % Monocytes % 4 % Eosinophils % 3 % Basophils % 0 % Neutrophils # 3.7 (1.3-7.7) k/uL Lymphocytes # 4.9 H (1.0-4.8) k/uL Monocytes # 0.3 (0-1.0) k/uL Eosinophils # 0.2 (0-0.7) k/uL Basophils # 0.0 (0-0.2) k/uL PT 9.6 (9.0-12.0) sec INR 0.9 (<1.2) APTT 22.4 (22.0-30.0) sec D-Dimer 0.24 (<0.60) mg/L FEU Sodium 139 (137-145) mmol/L Potassium 4.0 (3.5-5.1) mmol/L Chloride 105 (98-107) mmol/L Carbon Dioxide 26 (22-30) mmol/L Anion Gap 8 mmol/L BUN 11 (7-17) mg/dL Creatinine 0.82 (0.52-1.04) mg/dL Est GFR (CKD-EPI)AfAm >90 (>60 ml/min/1.73 sqM) Est GFR (CKD-EPI)NonAf >90 (>60 ml/min/1.73 sqM) Glucose 87 (74-99) mg/dL Calcium 9.5 (8.4-10.2) mg/dL Magnesium 2.0 (1.6-2.3) mg/dL Total Bilirubin 0.2 (0.2-1.3) mg/dL AST 19 (14-36) U/L ALT 22 (9-52) U/L Alkaline Phosphatase 53 (38-126) U/L Creatine Kinase 91 (30-135) U/L Troponin I (0.000-0.034) ng/mL Total Protein 7.0 (6.3-8.2) g/dL Albumin 4.0 (3.5-5.0) g/dL Urine Color Urine Appearance (Clear) Urine pH (5.0-8.0) Ur Specific [place] (1.001-1.035) Urine Protein (Negative) Urine Glucose (UA) (Negative) Urine Ketones (Negative) Urine Blood (Negative) Urine Nitrite (Negative) Urine Bilirubin (Negative) Urine Urobilinogen (<2.0) mg/dL Ur Leukocyte Esterase (Negative) Urine WBC (0-5) /hpf Ur Squamous Epith Cells (0-4) /hpf Urine Bacteria (None) /hpf Urine Mucus (None) /hpf Urine Yeast (Budding) (None) /hpf Urine HCG, Qual (Not Detectd) 04/26/19 04/26/19 04/26/19 Range/Units 16:18 16:40 16:40 WBC (3.8-10.6) k/uL RBC (3.80-5.40) m/uL Hgb (11.4-16.0) gm/dL Hct (34.0-46.0) % MCV (80.0-100.0) fL MCH (25.0-35.0) pg MCHC (31.0-37.0) g/dL RDW (11.5-15.5) % Plt Count (150-450) k/uL Neutrophils % % Lymphocytes % % Monocytes % % Eosinophils % % Basophils % % Neutrophils # (1.3-7.7) k/uL Lymphocytes # (1.0-4.8) k/uL Monocytes # (0-1.0) k/uL Eosinophils # (0-0.7) k/uL Basophils # (0-0.2) k/uL PT (9.0-12.0) sec INR (<1.2) APTT (22.0-30.0) sec D-Dimer (<0.60) mg/L FEU Sodium (137-145) mmol/L Potassium (3.5-5.1) mmol/L Chloride (98-107) mmol/L Carbon Dioxide (22-30) mmol/L Anion Gap mmol/L BUN (7-17) mg/dL Creatinine (0.52-1.04) mg/dL Est GFR (CKD-EPI)AfAm (>60 ml/min/1.73 sqM) Est GFR (CKD-EPI)NonAf (>60 ml/min/1.73 sqM) Glucose (74-99) mg/dL Calcium (8.4-10.2) mg/dL Magnesium (1.6-2.3) mg/dL Total Bilirubin (0.2-1.3) mg/dL AST (14-36) U/L ALT (9-52) U/L Alkaline Phosphatase (38-126) U/L Creatine Kinase (30-135) U/L Troponin I <0.012 (0.000-0.034) ng/mL Total Protein (6.3-8.2) g/dL Albumin (3.5-5.0) g/dL Urine Color Yellow Urine Appearance Clear (Clear) Urine pH 6.0 (5.0-8.0) Ur Specific [place] 1.017 (1.001-1.035) Urine Protein Negative (Negative) Urine Glucose (UA) Negative (Negative) Urine Ketones Negative (Negative) Urine Blood Negative (Negative) Urine Nitrite Positive H (Negative) Urine Bilirubin Negative (Negative) Urine Urobilinogen <2.0 (<2.0) mg/dL Ur Leukocyte Esterase Trace H (Negative) Urine WBC 4 (0-5) /hpf Ur Squamous Epith Cells 1 (0-4) /hpf Urine Bacteria Occasional H (None) /hpf Urine Mucus Rare H (None) /hpf Urine Yeast (Budding) Occasional H (None) /hpf Urine HCG, Qual Not Detected (Not Detectd) - Radiology Data Radiology results: report reviewed (CTA chest negative for acute disease ultrasound right lower extremity negative for acute disease), image reviewed Disposition Clinical Impression: Vasovagal syncope Disposition: HOME SELF-CARE Condition: Good Instructions (If sedation given, give patient instructions): Syncope (ED) Is patient prescribed a controlled substance at d/c from ED?: No Referrals: Elena Anthony MD [Primary Care Provider] - 1-2 days
[2019-04-26 16:32] VITALS: RESP 18
[2019-04-26] MEDS ORDERED: SODIUM CHLORIDE 0.9% 1,000 ML IV STA ×2 (16:32)
[2019-04-26 16:54] LABS: Basophils % (A) 0 %; Eosinophils # (A) 0.2 k/uL (0-0.7); Eosinophils % (A) 3 %; HCT 37.2 % (34.0-46.0); HGB 11.9 gm/dL (11.4-16.0); Lymphocytes # (A) 4.9 k/uL (1.0-4.8); Lymphocytes % (A) 52 %; MCH 27.1 pg (25.0-35.0); MCHC 32.1 g/dL (31.0-37.0); MCV 84.2 fL (80.0-100.0); Mean Platelet Volume 6.5; Monocytes # (A) 0.3 k/uL (0-1.0); Monocytes % (A) 4 %; Neutrophils # (A) 3.7 k/uL (1.3-7.7); Neutrophils % (A) 39 %; Platelet Count 253 k/uL (150-450); RBC 4.41 m/uL (3.80-5.40); RDW 13.1 % (11.5-15.5); WBC 9.3 k/uL (3.8-10.6)
[2019-04-26 16:54] LABS: Appearance,Urine Clear (Clear); Bacteria,Urine Occasional /hpf; Bilirubin,Urine Negative (Negative); Blood,Urine Negative (Negative); Budding Yeast,Urine Occasional /hpf; Color,Urine Yellow; Glucose,Urine (UA) Negative (Negative); Ketones,Urine Negative (Negative); Leukocyte Esterase,Urine Trace (Negative); Mucus,Urine Rare /hpf; Nitrite,Urine Positive (Negative); Protein,Urine Negative (Negative); Specific Gravity,Urine 1.017 (1.001-1.035); Squamous Epithelial Cell,Urine 1 /hpf (0-4); Urobilinogen,Urine <2.0 mg/dL (<2.0); WBC,Urine 4 /hpf (0-5)
[2019-04-26 17:05] LABS: ALT 22 U/L (9-52); AST 19 U/L (14-36); African American GFR (CKD) >90 (>60 ml/min/1.73 sqM); Alkaline Phosphatase 53 U/L (38-126); Anion Gap 8 mmol/L; Blood Urea Nitrogen 11 mg/dL (7-17); Calcium 9.5 mg/dL (8.4-10.2); Carbon Dioxide 26 mmol/L (22-30); Chloride 105 mmol/L (98-107); Creatine Kinase 91 U/L (30-135); Glucose 87 mg/dL (74-99); Sodium 139 mmol/L (137-145); Total Bilirubin 0.2 mg/dL (0.2-1.3)
[2019-04-26 17:50] LABS: D-Dimer 0.24 mg/L FEU (<0.60); INR 0.9 (<1.2)
[2019-04-26 17:51] LABS: Partial Thromboplastin Time 22.4 sec (22.0-30.0); Prothrombin Time 9.6 sec (9.0-12.0)
--- NOTE | 2019-04-26 18:28 | CT ---
EXAMINATION TYPE: CT angio chest DATE OF EXAM: 04/26/2019 COMPARISON: None HISTORY: 28-year-old female Chest tightness, dizziness. TECHNIQUE: Contiguous axial scanning of the chest performed with IV Contrast, patient injected with 1 00 mL of Isovue 370. Coronal/sagittal MIP reconstructions performed. CT DLP: 328.7 mGycm Automated exposure control for dose reduction was used. FINDINGS: Heart normal size without pericardial effusion. No finding of intraventricular septum. Some reflux of contrast in the hepatic veins likely due to phase of respiration. Aorta normal caliber with conventional arch vessel branching anatomy. Residual thymic tissue. No thoracic lymphadenopathy identified. Satisfactory opacification of the pulmonary arterial system, with the patient breathing during the ex am. No large central pulmonary embolus is seen. Many of the lobar, segmental and more distal arterial branches are essentially nondiagnostic due to the degree of motion. Mild dependent atelectasis. No consolidation or pleural effusion seen. Bones: No osseous destructive process. IMPRESSION: 1. MOTION DEGRADED EXAM. THE PATIENT WAS BREATHING DURING THE SCAN. NO LARGE CENTRAL PULMONARY EMBOLU S. MANY OF THE LOBAR AND MORE DISTAL ARTERIAL BRANCHES ARE ESSENTIALLY NONDIAGNOSTIC AND EMBOLI IN TH JON LOCATIONS CANNOT BE ADEQUATELY EXCLUDED ON THE BASIS OF THIS EXAM. 2. NO ACUTE PULMONARY PROCESS.
--- NOTE | 2019-04-26 19:29 | US ---
EXAMINATION TYPE: US venous doppler duplex LE RT DATE OF EXAM: 04/26/2019 7:17 PM COMPARISON: NONE CLINICAL HISTORY: 28-year-old female Pain. Pain right leg x 1 month. No HX of DVT. SIDE PERFORMED: Right TECHNIQUE: The lower extremity deep venous system is examined utilizing real time linear array sonog carey with graded compression, doppler sonography and color-flow sonography. FINDINGS: VESSELS IMAGED: External Iliac Vein (EIV) Common Femoral Vein Deep Femoral Vein Greater Saphenous Vein * Femoral Vein Popliteal Vein Proximal Calf Veins (* superficial vessels) Tub Attendant notes: Right Leg: Limited visibility lower popliteal and upper calf vein segments. Possible trickle flow in these segments, possible non-occlusive thrombus. Flow is seen, vessels appear compressible. No evide nce of DVT from mid popliteal vein extending up to EIV. IMPRESSION: 1. Tub Attendant indicates limited visibility of the lower popliteal and upper calf vein segments. Unab le to exclude nonocclusive DVT here. 2. No evidence for DVT from the external iliac vein down into the mid popliteal vein. 3. Consider short-term follow-up to reassess and exclude areas of chronic DVT.
[2019-04-26 19:52] VITALS: BP 120/66; PULSE 66; TEMP 98
== END 2019-04-26 19:58 | disposition home or self-care (01) ==
LOC: EC 15:22
DX: R55 Syncope and collapse (principal); F17.200 Nicotine dependence, unspecified, uncomplicated; Z88.5 Allergy status to narcotic agent
CPT/HCPCS: 36415; 93005; 85379; 80053; 82550; 83735; 84484; 85025; 85610; 85730; 81001; 81025; 93971; 71275; 99285; 96360; 96361 ×2; Q9967

== ENCOUNTER 2019-04-30 10:55 | Emergency (ER) | payer OTHER ==
[2019-04-30 11:03] VITALS: RESP 18
[2019-04-30 12:24] LABS: Basophils % (A) 0 %; Eosinophils # (A) 0.2 k/uL (0-0.7); Eosinophils % (A) 2 %; HCT 39.8 % (34.0-46.0); Lymphocytes % (A) 35 %; MCH 27.1 pg (25.0-35.0); MCHC 32.6 g/dL (31.0-37.0); MCV 83.1 fL (80.0-100.0); Mean Platelet Volume 6.4; Monocytes # (A) 0.3 k/uL (0-1.0); Monocytes % (A) 4 %; Neutrophils # (A) 4.7 k/uL (1.3-7.7); Neutrophils % (A) 57 %; Platelet Count 263 k/uL (150-450); RBC 4.79 m/uL (3.80-5.40); RDW 12.8 % (11.5-15.5); WBC 8.4 k/uL (3.8-10.6)
[2019-04-30 12:32] LABS: ALT 14 U/L (9-52); AST 15 U/L (14-36); African American GFR (CKD) >90 (>60 ml/min/1.73 sqM); Albumin 4.4 g/dL (3.5-5.0); Alkaline Phosphatase 50 U/L (38-126); Anion Gap 9 mmol/L; Blood Urea Nitrogen 13 mg/dL (7-17); Calcium 10.1 mg/dL (8.4-10.2); Carbon Dioxide 25 mmol/L (22-30); Chloride 102 mmol/L (98-107); Glucose 94 mg/dL (74-99); Potassium 4.2 mmol/L (3.5-5.1); Sodium 136 mmol/L (137-145); Total Bilirubin 0.4 mg/dL (0.2-1.3); Total Protein 7.7 g/dL (6.3-8.2)
--- NOTE | 2019-04-30 12:40 | ED ---
General Adult HPI <Gamal Robertson - Last Filed: 04/30/19 12:48> - General Source: patient, RN notes reviewed, old records reviewed Mode of arrival: ambulatory Limitations: no limitations <Lukasz Bermeo - Last Filed: 04/30/19 13:05> - General Chief complaint: Headache Stated complaint: back/neck/head pain Time Seen by Provider: 04/30/19 11:10 - History of Present Illness Initial comments: 28-year-old female patient past history of anxiety, fibromyalgia, irritable bowel syndrome presents to ED for chief complaint of paresthesias in her fingertips and her toes. Patient reports that she is feeling very anxious, as if she is breathing fast. Patient reports that she is also having some mild dizziness. Patient has chronic back pain due to fibromyalgia, however denies any new pain. Denies any chest pain or shortness of breath. Denies other complaints at this time. Systemic: Pt denies fatigue, fever/chills, rash. Pt denies weakness, night sweats, weight loss. Neuro: Pt denies headache, visual disturbances, syncope or pre-syncope. HEENT: Pt denies ocular discharge or irritation, otalgia, rhinorrhea, pharyngitis or notable lymphadenopathy. Cardiopulmonary: Pt denies chest pain, SOB, heart palpitations, dyspnea on exertion. Abdominal/GI: Pt denies abdominal pain, n/v/d. : Pt denies dysuria, burning w/ urination, frequency/urgency. Denies new onset urinary or bowel incontinence. MSK: Pt denies myalgia, loss of strength or function in extremities. Neuro: Pt denies new onset weakness, paresthesias. (Lukasz Bermeo) - Related Data Home Medications Medication Instructions Recorded Confirmed hydrOXYzine HCL [Atarax] 50 mg PO TID PRN 04/26/19 04/26/19 Previous Rx's Medication Instructions Recorded Cyclobenzaprine [Flexeril] 1 - 2 tab PO TID #20 tablet 04/05/19 Allergies Allergy/AdvReac Type Severity Reaction Status Date / Time morphine Allergy Unknown Verified 04/30/19 10:57 Review of Systems ROS Other: All systems not noted in ROS Statement are negative. <Gamal Robertson - Last Filed: 04/30/19 12:48> ROS Other: All systems not noted in ROS Statement are negative. <BarkLukasz baer - Last Filed: 04/30/19 13:05> ROS Statement: Those systems with pertinent positive or pertinent negative responses have been documented in the HPI. Past Medical History Past Medical History: Fibromyalgia Additional Past Medical History / Comment(s): diverticulosis, abdominal pain, IBS History of Any Multi-Drug Resistant Organisms: None Reported Past Surgical History: No Surgical Hx Reported Additional Past Surgical History / Comment(s): COLONOSCOPY AND EGD Past Anesthesia/Blood Transfusion Reactions: No Reported Reaction Past Psychological History: Anxiety, Depression Smoking Status: Current every day smoker Past Alcohol Use History: Rare Past Drug Use History: Marijuana - Past Family History Mother Family Medical History: No Reported History <Jean-ClaudeLukasz Sri - Last Filed: 04/30/19 13:05> General Exam Limitations: no limitations <JimkeyurLukasz - Last Filed: 04/30/19 13:05> - General Exam Comments Initial Comments: Constitutional: NAD, AOX3, Pt has pleasant affect. HEENT: NC/AT, trachea midline, neck supple, no lymphadenopathy. Posterior phary nx non erythematous, without exudates. External ears appear normal, without discharge. Mucous membranes moist. Eyes PERRLA, EOM intact. There is no scleral icterus. No pallor noted. Cardiopulmonary: RRR, no murmurs, rubs or gallops, no JVD noted. Lungs CTAB in anterior and posterior mart. No peripheral edema. Abdominal exam: Abdomen soft and non-distended. Abdomen non-tender to palpation in all 4 quadrants. Bowel sounds active in LLQ. No hepatosplenomegaly. No ecchymosis Neuro: CN II-XII intact. No nuchal rigidity. No raccon eyes, no díaz sign, no hemotympanum. No cervical spinal tenderness. NIH 0. MSK: No posterior calf tenderness bilaterally, homans sign negative bilaterally. Posterior tibialis and radial pulse +2 bilaterally. Sensation intact in upper and lower extremities. Full active ROM in upper and lower extremities, 5/5 stregnth. (Jean-ClaudeLukasz J) Course <Gamal Robertson - Last Filed: 04/30/19 12:48> Vital Signs 04/30/19 04/30/19 04/30/19 10:57 12:11 12:29 Temperature 98.3 F Pulse Rate 97 73 75 Respiratory 18 18 18 Rate Blood Pressure 117/83 113/69 113/69 O2 Sat by Pulse 100 100 100 Oximetry 04/30/19 12:30 Temperature Pulse Rate 79 Respiratory 18 Rate Blood Pressure 114/71 O2 Sat by Pulse Oximetry - Reevaluation(s) Reevaluation #1: 04/30/19 12:48 PA supervision: I proceeded patient states evaluation the patient she does demonstrate evidence of hyperventilation syndrome she is very anxious and hyperventilating MO presents no neurological deficits at all. No carpal pedal spasms at this time. She does states she feels weak she states this is been going on for about 3 days. Her NIH score upon my evaluation is 0. I do agree with the assessment and plan (Gamal Robertson) Medical Decision Making - Lab Data Result diagrams: 04/30/19 12:09 04/30/19 12:09 <Gamal Robertson - Last Filed: 04/30/19 12:48> - Lab Data Result diagrams: 04/30/19 12:09 04/30/19 12:09 <Lukasz Bermeo - Last Filed: 04/30/19 13:05> - Medical Decision Making 28-year-old female patient past history of anxiety, fibromyalgia, irritable bowel syndrome presents to ED for chief complaint of paresthesias in her fingertips and her toes. Patient reports that she is feeling very anxious, as if she is breathing fast. Patient reports that she is also having some mild dizziness. Patient has chronic back pain due to fibromyalgia, however denies any new pain. Denies any chest pain or shortness of breath. Denies other complaints at this time. Patient vital signs stable, afebrile. Physical exam displayed a normal neurological exam, NIH of 0. Investigations were not impr essive. The patient appears to be having anxiety and paresthesias secondary to hyperventilation. Patient independently evaluated by Dr. Robertson, who is in agreement with assessment. Pt did slow her breathing and engage in breathing exercises which alleviated her symptoms. Patient will be discharged, follow up with primary care provider, will continue to take anxiety medication at home. (Lukasz Bermeo) - Lab Data Lab Results 04/30/19 04/30/19 04/30/19 Range/Units 12:09 12:09 12:09 WBC 8.4 (3.8-10.6) k/uL RBC 4.79 (3.80-5.40) m/uL Hgb 13.0 (11.4-16.0) gm/dL Hct 39.8 (34.0-46.0) % MCV 83.1 (80.0-100.0) fL MCH 27.1 (25.0-35.0) pg MCHC 32.6 (31.0-37.0) g/dL RDW 12.8 (11.5-15.5) % Plt Count 263 (150-450) k/uL Neutrophils % 57 % Lymphocytes % 35 % Monocytes % 4 % Eosinophils % 2 % Basophils % 0 % Neutrophils # 4.7 (1.3-7.7) k/uL Lymphocytes # 3.0 (1.0-4.8) k/uL Monocytes # 0.3 (0-1.0) k/uL Eosinophils # 0.2 (0-0.7) k/uL Basophils # 0.0 (0-0.2) k/uL Sodium 136 L (137-145) mmol/L Potassium 4.2 (3.5-5.1) mmol/L Chloride 102 (98-107) mmol/L Carbon Dioxide 25 (22-30) mmol/L Anion Gap 9 mmol/L BUN 13 (7-17) mg/dL Creatinine 0.99 (0.52-1.04) mg/dL Est GFR (CKD-EPI)AfAm >90 (>60 ml/min/1.73 sqM) Est GFR (CKD-EPI)NonAf 78 (>60 ml/min/1.73 sqM) Glucose 94 (74-99) mg/dL Calcium 10.1 (8.4-10.2) mg/dL Total Bilirubin 0.4 (0.2-1.3) mg/dL AST 15 (14-36) U/L ALT 14 (9-52) U/L Alkaline Phosphatase 50 (38-126) U/L Total Protein 7.7 (6.3-8.2) g/dL Albumin 4.4 (3.5-5.0) g/dL HCG, Qual Not Detected Disposition <Gamal Robertson - Last Filed: 04/30/19 12:48> Is patient prescribed a controlled substance at d/c from ED?: No <Lukasz Bermeo - Last Filed: 04/30/19 13:05> Clinical Impression: Anxiety, Hyperventilation Disposition: HOME SELF-CARE Condition: Stable Instructions (If sedation given, give patient instructions): Anxiety (ED) Additional Instructions: Patient to adhere to previously discussed treatment plan and will take medication(s) as directed. Patient to follow up with PCP in 1-2 days. Patient to return to ED if symptoms do not improve. Follow-up with primary care provider tomorrow. Referrals: Elena Anthony MD [Primary Care Provider] - 1-2 days
[2019-04-30 13:35] VITALS: BP 116/72; PULSE 74; TEMP 98.2
== END 2019-04-30 13:34 | disposition home or self-care (01) ==
LOC: EC 10:55
DX: F41.9 Anxiety disorder, unspecified (principal); R42 Dizziness and giddiness; M79.7 Fibromyalgia; F17.200 Nicotine dependence, unspecified, uncomplicated; Z88.5 Allergy status to narcotic agent
CPT/HCPCS: 36415; 80053; 84703; 85025; 99284

== ENCOUNTER → 2019-05-04 | Outpatient (CLI) | payer OTHER ==
--- NOTE | 2019-05-04 08:00 | CT ---
EXAMINATION TYPE: CT brain w con DATE OF EXAM: 05/04/2019 COMPARISON: CT brain April 17, 2017. HISTORY: Headache, syncopal episode, tingling feeling in extremities CT DLP: 1121 mGycm. Automated Exposure Control for Dose Reduction was Utilized. TECHNIQUE: CT scan of the head is performed with IV Contrast, patient injected with 100 mL of Isovu e 300. FINDINGS: Postcontrast images show no suspicious enhancing intraparenchymal mass. Ventricles and sulc i remain normal in size. Chou-white matter differentiation is preserved. The globes are intact and th e visualized sinuses are clear. Normal draining venous sinuses are present. IMPRESSION: Unremarkable study.
== END | disposition home or self-care (01) ==
LOC: RADCTMAIN 07:03
PROVIDERS: ATTEND Family Medicine
DX: R42 Dizziness and giddiness (principal); R20.2 Paresthesia of skin; R51 Headache; Z87.898 Personal history of other specified conditions
CPT/HCPCS: 70460; Q9967

== ENCOUNTER 2020-06-28 11:41 | Emergency (ER) | payer OTHER ==
[2020-06-28 11:50] VITALS: BP 145/84; PULSE 83; RESP 18; TEMP 98.5
[2020-06-28] MEDS ORDERED: HYDROcodone/APAP 5-325MG 1 EACH TAB PO STA (12:35)
[2020-06-28] MEDS ORDERED: ACET/COD 300 MG/30 MG STARTER PACK 6 TAB BTL PO STA (12:35)
--- NOTE | 2020-06-28 12:36 | ED ---
ENT HPI - General Chief complaint: Dental/Oral Stated complaint: Tooth pain Time Seen by Provider: 06/28/20 12:01 Source: patient, RN notes reviewed Mode of arrival: ambulatory Limitations: no limitations - History of Present Illness Initial comments: This a 30-year-old female presents emergency Department chief complaint dental pain. Patient scheduled for dental extraction next week. Patient states that increasing pain. Patient states is her left side upper and lower. Patient denies any fevers or chills. She did not take any medications prior arrival. Patient denies any trauma patient offers no complaints. - Related Data Home Medications Medication Instructions Recorded Confirmed hydrOXYzine HCL [Atarax] 50 mg PO TID PRN 04/26/19 04/26/19 Previous Rx's Medication Instructions Recorded Cyclobenzaprine [Flexeril] 1 - 2 tab PO TID #20 tablet 04/05/19 Clindamycin HCl 300 mg PO Q6HR #40 cap 06/28/20 Allergies Allergy/AdvReac Type Severity Reaction Status Date / Time morphine Allergy Unknown Verified 04/30/19 10:57 Review of Systems ROS Statement: Those systems with pertinent positive or pertinent negative responses have been documented in the HPI. ROS Other: All systems not noted in ROS Statement are negative. Past Medical History Past Medical History: Fibromyalgia Additional Past Medical History / Comment(s): diverticulosis, abdominal pain, IBS History of Any Multi-Drug Resistant Organisms: None Reported Past Surgical History: No Surgical Hx Reported Additional Past Surgical History / Comment(s): COLONOSCOPY AND EGD Past Anesthesia/Blood Transfusion Reactions: No Reported Reaction Past Psychological History: Anxiety, Depression Smoking Status: Current every day smoker Past Alcohol Use History: Occasional Past Drug Use History: None Reported - Past Family History Mother Family Medical History: No Reported History General Exam Limitations: no limitations General appearance: alert, in no apparent distress Head exam: Present: atraumatic, normocephalic, normal inspection Eye exam: Present: normal appearance, PERRL, EOMI. Absent: scleral icterus, conjunctival injection, periorbital swelling ENT exam: Present: mucous membranes moist, TM's normal bilaterally, normal external ear exam. Absent: normal oropharynx (Dental Wendi, dental erosion left side no drainable abscess) Neck exam: Present: normal inspection, full ROM. Absent: tenderness, meningismus, lymphadenopathy Respiratory exam: Present: normal lung sounds bilaterally. Absent: respiratory distress, wheezes, rales, rhonchi, stridor Cardiovascular Exam: Present: regular rate, normal rhythm, normal heart sounds. Absent: systolic murmur, diastolic murmur, rubs, gallop, clicks GI/Abdominal exam: Present: soft, normal bowel sounds. Absent: distended, tenderness, guarding, rebound, rigid Back exam: Absent: CVA tenderness (R), CVA tenderness (L) Neurological exam: Present: alert, oriented X3 Skin exam: Present: warm, dry, intact, normal color. Absent: rash Course Vital Signs 06/28/20 11:48 Temperature 98.5 F Pulse Rate 83 Respiratory 18 Rate Blood Pressure 145/84 O2 Sat by Pulse 99 Oximetry Medical Decision Making - Medical Decision Making Patient starting antibiotics and possible dental infection given pain medicine for pain control. Disposition Clinical Impression: Toothache Disposition: HOME SELF-CARE Condition: Stable Instructions (If sedation given, give patient instructions): Toothache (ED) Additional Instructions: Please return to the Emergency Department if symptoms worsen or any other concerns. Prescriptions: Clindamycin HCl 300 mg PO Q6HR #40 cap Is patient prescribed a controlled substance at d/c from ED?: No Referrals: Elena Anthony MD [Primary Care Provider] - 1-2 days Time of Disposition: 12:36
== END 2020-06-28 13:00 | disposition home or self-care (01) ==
LOC: EC 11:41
DX: K08.89 Other specified disorders of teeth and supporting structures (principal); F17.200 Nicotine dependence, unspecified, uncomplicated; Z88.5 Allergy status to narcotic agent
CPT/HCPCS: 99282